=== PATIENT | female | born 1940 | race Caucasian/White ===

== ENCOUNTER → 2017-07-06 | Outpatient (CLI) | payer MEDICARE ==
[~2017-07-06] MED LIST: ALPR.25T PO; AMLO10TA82 PO; ASP81TEC PO; CALC1TAB38 PO; CALC625T PO; CHOL200025 PO; DCS100C PO; DICL/MIS50 PO; EST45C VG; FEXO180T PO; HYDR-1231 PO; MIACALCIN IU; MTP25TSR PO; MULT1CAP27 PO; OLME20TA21 PO; OMEG1CAP58 PO; OMEP20CA12 PO; PRV20T PO; SIME80TA6 PO; SITA100T PO
[2017-07-06 16:22] LABS: BASOPHILS # (AUTO) 0.1 10^3/uL (0.0-0.1); BASOPHILS % (AUTO) 1 % (0-10); EOSINOPHILS # (AUTO) 0.5 10^3/uL (0.0-0.3); EOSINOPHILS % (AUTO) 5 % (0-10); LYMPHOCYTES # (AUTO) 2.6 X 10^3 (1.0-4.0); LYMPHOCYTES % (AUTO) 25 % (12-44); MEAN CORPUSCULAR HEMOGLOBIN 29 PG (25-34); MEAN CORPUSCULAR HGB CONC 33 G/DL (32-36); MEAN CORPUSCULAR VOLUME 89 FL (80-99); MEAN PLATELET VOLUME 10.2 FL (7.4-10.4); MONOCYTES # (AUTO) 1.3 X 10^3 (0.0-1.0); MONOCYTES % (AUTO) 12 % (0-12); NEUTROPHILS # (AUTO) 5.9 X 10^3 (1.8-7.8); NEUTROPHILS % (AUTO) 57 % (42-75); PLATELET COUNT 321 10^3/uL (130-400); RED BLOOD COUNT 4.18 10^6/uL (4.35-5.85); RED CELL DISTRIBUTION WIDTH 13.7 % (10.0-14.5); WHITE BLOOD COUNT 10.4 10^3/uL (4.3-11.0)
[2017-07-06 16:41] LABS: ALBUMIN 3.7 GM/DL (3.2-4.5); BILIRUBIN,TOTAL 0.3 MG/DL (0.1-1.0); CALCIUM 9.5 MG/DL (8.5-10.1); CREATININE SERUM 1.14 MG/DL (0.60-1.30); POTASSIUM 3.4 MMOL/L (3.6-5.0)
--- NOTE | 2017-07-06 18:07 | Diagnostic Imaging Report ---
PA and lateral views of the chest. INDICATION: Cough. FINDINGS: The lungs are clear of focal infiltrates. There is chronic-appearing interstitial thickening. The heart size is normal. There is no effusion or pneumothorax. The mediastinum and chasity appear unremarkable. IMPRESSION: No acute process. Dictated by: Dictated on workstation # [id number]
== END ==
LOC: RAD 15:55
PROVIDERS: ATTEND Nurse Practitioner Family
DX: R05 Cough (principal); J01.10 Acute frontal sinusitis, unspecified
CPT/HCPCS: 36415; 71020; 80053; 85025

== ENCOUNTER 2017-07-15 12:23 | Inpatient (IN) | payer MEDICARE ==
[2017-07-15] VITALS (9 sets, daily range): BP systolic 92–132; BP diastolic 43–68
[~2017-07-15] VITALS: Ht 157.5 cm; Wt 63.1 kg
[~2017-07-15 12:23] MED LIST changes: -AMLO5TAB2 PO; -CA C1TAB75 PO; -FENO135C4 PO; -FLUT9.9S NSEACH; -KRIL1CAP2 PO; -LACT1CAP39 PO; -LEVO500T80 PO; -LEVO5TAB28 PO; -MONT10TA24 PO; -NAPR500T PO; -PRD20T PO; -UBID100C44 PO
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
[2017-07-15 12:46] LABS: BASOPHILS % (AUTO) 0 % (0-10); EOSINOPHILS # (AUTO) 0.4 10^3/uL (0.0-0.3); EOSINOPHILS % (AUTO) 4 % (0-10); LYMPHOCYTES # (AUTO) 0.9 X 10^3 (1.0-4.0); LYMPHOCYTES % (AUTO) 9 % (12-44); MEAN CORPUSCULAR HEMOGLOBIN 29 PG (25-34); MEAN CORPUSCULAR HGB CONC 33 G/DL (32-36); MEAN CORPUSCULAR VOLUME 88 FL (80-99); MEAN PLATELET VOLUME 9.7 FL (7.4-10.4); MONOCYTES # (AUTO) 1.4 X 10^3 (0.0-1.0); MONOCYTES % (AUTO) 13 % (0-12); NEUTROPHILS # (AUTO) 7.7 X 10^3 (1.8-7.8); NEUTROPHILS % (AUTO) 74 % (42-75); PLATELET COUNT 407 10^3/uL (130-400); RED BLOOD COUNT 4.14 10^6/uL (4.35-5.85); RED CELL DISTRIBUTION WIDTH 13.7 % (10.0-14.5); WHITE BLOOD COUNT 10.4 10^3/uL (4.3-11.0)
[2017-07-15 13:03] LABS: ALBUMIN 3.6 GM/DL (3.2-4.5); BILIRUBIN,TOTAL 0.4 MG/DL (0.1-1.0); CALCIUM 9.5 MG/DL (8.5-10.1); CREATININE SERUM 1.1 MG/DL (0.60-1.30); POTASSIUM 4.3 MMOL/L (3.6-5.0); TOTAL PROTEIN 7.3 GM/DL (6.4-8.2)
--- NOTE | 2017-07-15 13:14 | ED Respiratory ---
General Chief Complaint: Respiratory Problems Stated Complaint: SOB,FEVER Nursing Triage Note: SOA SINCE APRIL, WORSE THIS AM. FEVER OFF AND ON FOR SEVERAL DAYS. Source: patient Exam Limitations: no limitations History of Present Illness Time seen by provider: 13:12 Initial Comments To ER with progressive dyspnea on exertion. This is been ongoing since about April of this year. During that time she was started on Cipro and Flagyl for diverticulitis. She then developed hives all over and was on a course of steroids. Since then she's had a progressive cough and shortness of breath. The cough is nonproductive. She's had a fever up to 100.5 for the past 3-4 days. No history of this. Upon arrival to ER oxygen saturations 83 percent on room air. Timing/Duration: constant Severity: moderate Associated Symptoms: cough, fever/chills, shortness of breath, wheezing Allergies and Home Medications Allergies Coded Allergies: Sulfa (Sulfonamide Antibiotics) (Verified Allergy, Mild, 11/12/11) Home Medications Alprazolam 0.25 Mg Tablet, 0.25 MG PO BID PRN, (Reported) Amlodipine Besylate 10 Mg Tablet, 10 MG PO DAILY, (Reported) Aspirin 81 Mg Tabec, 81 MG PO DAILY, (Reported) Benicar Hct 20 Mg Tablet, 20 MG PO DAILY, (Reported) Calcium Citrate/Vitamin D3 1 Each Tablet, 1 TAB PO DAILY, (Reported) Calcium Polycarbophil 625 Mg Tablet, 2 TAB PO DAILY, (Reported) Cholecalciferol (Vitamin D3) 2,000 Unit Tablet, 2,000 UNIT PO DAILY, (Reported) Docusate Sodium 100 Mg Capsule, 200 MG PO DAILY, (Reported) Estrogens Conjugated 45 Gm Cr, 0.5 GM VG hs - 2x/week, (Reported) 1 APPLICATORFUL Fexofenadine Hcl 180 Mg Tablet, 180 MG PO DAILY, (Reported) Hydrocodone Bit/Acetaminophen 1 Tab Tablet, 1 TAB PO Q6H PRN for PAIN, #20 Prescribed by: CONSTANTINE CAMPBELL on 04/02/152138 Metoprolol Succinate 25 Mg Tab.sr.24h, 25 MG PO DAILY, (Reported) Multivitamins 1 Each Capsule, 1 EACH PO DAILY, (Reported) [place]-3 Fatty Acids/Fish Oil 1 Each Capsule, 1,000 MG PO TID, (Reported) Omeprazole 20 Mg Capsule.dr, 20 MG PO DAILY, #30 (Reported) Pravastatin Sodium 20 Mg Tablet, 20 MG PO DAILY, #30 (Reported) Simethicone 80 Mg Tab.chew, 80 MG PO PRN, (Reported) Sitagliptin Phosphate 100 Mg Tablet, 100 MG PO DAILY, (Reported) Constitutional: see HPI, chills, fever, malaise, weakness EENTM: see HPI Respiratory: see HPI, cough, dyspnea on exertion, short of breath Cardiovascular: no symptoms reported, No chest pain, No edema, No Hx of Intervention, No palpitations, No syncope, No vascular heart diseas Genitourinary: no symptoms reported Musculoskeletal: see HPI, other (BLE leg cramping intermittently) Skin: no symptoms reported Psychiatric/Neurological: No Symptoms Reported Hematologic/Lymphatic: No Symptoms Reported Past Txplzfp-Fmuiim-Ofubxa Hx Patient Social History Alcohol Use: Denies Use Recreational Drug Use: No Smoking Status: Never a Smoker Recent Foreign Travel: No Contact w/Someone Who Travel: No Recent Infectious Disease Expo: No Immunizations Up To Date Tetanus Booster (TDap): Unknown Surgeries HX Surgeries: Yes Surgeries: Hysterectomy Respiratory Hx Respiratory Disorders: No Cardiovascular Hx Cardiac Disorders: Yes Cardiac Disorders: High Cholesterol, Hypertension Neurological Hx Neurological Disorders: No Reproductive System Hx Reproductive Disorders: No Genitourinary Hx Genitourinary Disorders: No Gastrointestinal Hx Gastrointestinal Disorders: Yes Gastrointestinal Disorders: Gastroesophageal Reflux, Diverticulosis Musculoskeletal Hx Musculoskeletal Disorders: Yes Musculoskeletal Disorders: Fractures Endocrine Hx Endocrine Disorders: No HEENT HX ENT Disorders: No Cancer Hx Cancer: No Psychosocial Hx Psychiatric Problems: No Integumentary HX Skin/Integumentary Disorder: No Blood Transfusions Hx Blood Disorders: No Physical Exam Vital Signs Vital Sign - Last 12Hours 07/15/17 12:47 Temp 100.5 Pulse 86 Resp 22 B/P (MAP) 148/66 Pulse Ox 96 O2 Delivery Nasal Cannula O2 Flow Rate 2.00 Capillary Refill : Less Than 3 Seconds General Appearance: WD/WN, no apparent distress Eyes: Bilateral Eye Normal Inspection, Bilateral Eye PERRL, Bilateral Eye EOMI HEENT: PERRL/EOMI, normal ENT inspection Neck: non-tender, full range of motion Respiratory: no respiratory distress, no accessory muscle use, rales ( bilateral bases L>R) Cardiovascular: regular rate, rhythm, no murmur Gastrointestinal: normal bowel sounds, non tender, soft Extremities: normal range of motion, normal inspection, No normal capillary refill Neurologic/Psychiatric: alert, normal mood/affect, oriented x 3 Skin: normal color, warm/dry Focused Exam Evaluation Lactate Level Laboratory Tests 07/15/17 13:16: Lactic Acid Level 1.05 Lactic Acid Level Laboratory Tests Test 07/15/17 13:16 Lactic Acid Level 1.05 MMOL/L (0.50-2.00) Progress/Results/Core Measures Results/Orders Lab Results Laboratory Tests Test 07/15/17 12:30 07/15/17 13:16 Range/Units White Blood Count 10.4 4.3-11.0 10^3/uL Red Blood Count 4.14 L 4.35-5.85 10^6/uL Hemoglobin 12.0 11.5-16.0 G/DL Hematocrit 37 35-52 % Mean Corpuscular Volume 88 80-99 FL Mean Corpuscular Hemoglobin 29 25-34 PG Mean Corpuscular Hemoglobin Concent 33 32-36 G/DL Red Cell Distribution Width 13.7 10.0-14.5 % Platelet Count 407 H 130-400 10^3/uL Mean Platelet Volume 9.7 7.4-10.4 FL Neutrophils (%) (Auto) 74 42-75 % Lymphocytes (%) (Auto) 9 L 12-44 % Monocytes (%) (Auto) 13 H 0-12 % Eosinophils (%) (Auto) 4 0-10 % Basophils (%) (Auto) 0 0-10 % Neutrophils # (Auto) 7.7 1.8-7.8 X 10^3 Lymphocytes # (Auto) 0.9 L 1.0-4.0 X 10^3 Monocytes # (Auto) 1.4 H 0.0-1.0 X 10^3 Eosinophils # (Auto) 0.4 H 0.0-0.3 10^3/uL Basophils # (Auto) 0.0 0.0-0.1 10^3/uL Sodium Level 137 135-145 MMOL/L Potassium Level 4.3 3.6-5.0 MMOL/L Chloride Level 103 98-107 MMOL/L Carbon Dioxide Level 25 21-32 MMOL/L Anion Gap 9 5-14 MMOL/L Blood Urea Nitrogen 22 H 7-18 MG/DL Creatinine 1.10 0.60-1.30 MG/DL Estimat Glomerular Filtration Rate 49 BUN/Creatinine Ratio 20 Glucose Level 118 H 70-105 MG/DL Calcium Level 9.5 8.5-10.1 MG/DL Total Bilirubin 0.4 0.1-1.0 MG/DL Aspartate Amino Transf (AST/SGOT) 26 5-34 U/L Alanine Aminotransferase (ALT/SGPT) 14 0-55 U/L Alkaline Phosphatase 46 40-136 U/L Troponin I < 0.30 <0.30 NG/ML B-Type Natriuretic Peptide 19.5 <100.0 PG/ML Total Protein 7.3 6.4-8.2 GM/DL Albumin 3.6 3.2-4.5 GM/DL Lactic Acid Level 1.05 0.50-2.00 MMOL/L My Orders Orders - HIREN ZHENG [employer] MGR Cbc With Automated Diff (07/15/17 12:27) Comprehensive Metabolic Panel (07/15/17 12:27) Chest Pa/Lat (2 View) (07/15/17 12:27) Blood Culture (07/15/17 12:27) Saline Lock/Iv-Start (07/15/17 12:27) Lactic Acid Analyzer (07/15/17 12:27) Troponin I (07/15/17 12:53) Ekg Tracing (07/15/17 12:53) BNP (07/15/17 12:53) Albuterol/Ipra Inhalation Soln (Duoneb I (07/15/17 13:30) Svn Sm Volume Nebulizer Rt-Rfs (07/15/17 13:18) Ct Angio Chest W (07/15/17 13:50) Iohexol Injection (Omnipaque 350 Mg/Ml 1 (07/15/17 14:00) Ns (Ivpb) (Sodium Chloride 0.9% Ivpb Bag (07/15/17 14:00) Iohexol Injection (Omnipaque 350 Mg/Ml 1 (07/15/17 14:15) Ns (Ivpb) (Sodium Chloride 0.9% Ivpb Bag (07/15/17 14:15) Us Venous Lower Ext [place]ak (07/15/17 14:46) Apixaban Tablet (Eliquis Tablet) (07/15/17 15:00) Medications Given in ED Current Medications Medications Dose Ordered Sig/Chaim Route Start Time Stop Time Status Last Admin Dose Admin Albuterol/ Ipratropium 3 ml ONCE ONCE INH 07/15/17 13:30 07/15/17 13:31 DC 07/15/17 13:37 3 ML Apixaban 10 mg ONCE ONCE PO 07/15/17 15:00 07/15/17 15:01 DC 07/15/17 16:03 10 MG Iohexol 100 ml ONCE ONCE IV 07/15/17 14:15 07/15/17 14:16 DC 07/15/17 14:11 100 ML Sodium Chloride 100 ml ONCE ONCE IV 07/15/17 14:15 07/15/17 14:16 DC 07/15/17 14:11 80 ML Vital Signs/I&O Vital Sign - Last 12Hours 07/15/17 07/15/17 12:47 13:40 Temp 100.5 Pulse 86 Resp 22 B/P (MAP) 148/66 Pulse Ox 96 O2 Delivery Nasal Cannula Nasal Cannula O2 Flow Rate 2.00 2.50 Blood Pressure Mean: 93 Diagnostic Imaging Diagonstic Imaging: Xray Plain Films/CT/US/NM/MRI: chest Comments NAME: LIZETTE GONZALEZ [employer] REC#: [id number] PT STATUS: REG ER : 1940 PHYSICIAN: HIREN ZHENG APRN ADMIT DATE: 07/15/17/ER Draft Date of Exam:07/15/17 CHEST PA/LAT (2 VIEW) INDICATION: Cough. COMPARISON: 07/06/2017. FINDINGS: Two views of the chest are obtained. Heart size is normal. The pulmonary vessels appear unremarkable. There is no pneumothorax or pleural fluid demonstrated. There are patchy alveolar infiltrates in the mid and lower lungs bilaterally, increased from the prior study. The osseous structures appear unremarkable. IMPRESSION: Patchy bilateral alveolar infiltrates. Short-term followup study is recommended to document resolution. Dictated on workstation # [id number] Dict: 07/15/17 1336 Trans: 07/15/17 1342 [facility] [id number] Interpreted by: SLIM JEFFRIES DO Electronically signed by: NAME: LIZETTE GONZALEZ [employer] REC#: [id number] PT STATUS: REG ER : 1940 PHYSICIAN: HIREN ZHENG APRN ADMIT DATE: 07/15/17/ER Draft Date of Exam:07/15/17 CT ANGIO CHEST W PROCEDURE: CT angiography of the chest with contrast. TECHNIQUE: Multiple contiguous axial images were obtained through the chest after uneventful bolus administration of intravenous contrast. Reconstructed CTA MIP acquisitions were also performed. INDICATION: Cough and dyspnea. There are large bilateral pulmonary emboli including a saddle embolus extending across the bifurcation into the left upper lobe pulmonary arterial branches. Smaller emboli are also present within left lower lobe arterial branches with small/ moderate emboli within right upper and lower lobe pulmonary artery branches. In addition, there is diffuse groundglass opacity throughout the lungs with background of centrilobular emphysema. No focal consolidation or evidence of pulmonary infarct is identified. There is no significant pleural or pericardial fluid. Thoracic aorta demonstrates no evidence of acute abnormality. There is mild atherosclerotic calcification. There is asymmetric prominence of the right internal jugular vein. IMPRESSION: Subtle emboli involving the pulmonary arteries bilaterally. In addition there is diffuse emphysema with associated edema and/or pneumonitis. Dictated on workstation # [id number] Dict: 07/15/17 1424 Trans: 07/15/17 1431 [id number] Interpreted by: CONCEPCION SERRANO MD Electronically signed by: NAME: LIZETTE GONAZLEZ [facility] REC#: [id number] PT STATUS: ADM IN : 1940 PHYSICIAN: HIREN ZHENG APRN ADMIT DATE: 07/15/17/ICU Draft Date of Exam:07/15/17 US VENOUS LOWER EXT [place] EXAM: Bilateral lower extremity venous Doppler. INDICATION: Bilateral pulmonary emboli. Spectral color flow imaging of the deep venous system of each lower extremity was performed. There does appear to be an extensive thrombus involving the left lower extremity. There is thrombus imaged in the common femoral, superficial femoral, popliteal and peroneal veins. There is generally good blood flow and compressibility throughout the deep venous system of the right lower extremity. IMPRESSION: 1. There is an extensive deep venous thrombosis of the left lower extremity. 2. There is no sign of a deep venous thrombosis of the right lower extremity. 3. These results were discussed with Dr. Whalen at the time of dictation. CRITICAL FINDING Dictated on workstation # [id number] Dict: 07/15/17 1530 Trans: 07/15/17 1548 [facility] [phone] Interpreted by: SUSIE JOHNSON MD Electronically signed by: Departure Communication Time/Spoke to Admitting Phy: 14:[address] Pompa. We'll admit patient to ICU, consult cardiology. Time/Spoke to Consulting Physi: 15:00 Communication/Consulting Discussed with Dr. Saucedo. He would like the patient to have Kiran per protocol. He would like to have Dr. Whitten from pulmonology on board. I called Dr. Whitten but he is in [place] for the next week. Dr. Zuñiga is okay with keeping the patient here from his standpoint if Dr. Pompa is okay with managing the respiratory complications. Since the patient was 81 percent on room air, we did apply 2 L of oxygen per nasal cannula and she is up to 96 percent on the 2 L. There is no respiratory distress and her heart rate is 102 sinus with PAC, blood pressure is adequate in the 130s systolic range. She is okay with keeping this here. I discussed the case with Dr. Bhatti who confirms this is not a saddle pulmonary embolus. Progress Notes 1356- she does feel better after a DuoNeb treatment. Oxygen saturation is 96 percent on 2 L. 1447-in discussing the primary emboli with the patient her family reported that she did take a car trip to [place] about 4-6 weeks ago. Since then she's felt ill so she's been laying around and not moving much. She has no known history of DVTs or cancer. She reports for the past few days she's had bilateral leg cramps. The ultrasound shows extensive clot in the deep veins of the left leg which is surprising given the absence of the typical findings of clot. She has no lower extremity swelling or erythema. Impression Impression: Primary Impression: Bilateral pulmonary embolism Disposition: 09 ADMITTED INPATIENT Condition: Stable Admissions Decision to Admit Reason: Admit from ER (General) Decision to Admit/Date: Jul 15, 2017 Time/Decision to Admit Time: 13:57 Departure-Patient Inst. Referrals: SAYDA ELI DO (PCP/Family) Primary Care Physician Copy Copies To 1: SAYDA ELI PETER J [employer] MGR Jul 15, 2017 13:14
[2017-07-15] MEDS ORDERED: RT-ALBUTEROL/IPRATROPIUM 3 ML (DUONEB) VIAL INH ONE (13:30)
--- NOTE | 2017-07-15 13:43 | Diagnostic Imaging Report ---
INDICATION: Cough. COMPARISON: 07/06/2017. FINDINGS: Two views of the chest are obtained. Heart size is normal. The pulmonary vessels appear unremarkable. There is no pneumothorax or pleural fluid demonstrated. There are patchy alveolar infiltrates in the mid and lower lungs bilaterally, increased from the prior study. The osseous structures appear unremarkable. IMPRESSION: Patchy bilateral alveolar infiltrates. Short-term followup study is recommended to document resolution. Dictated by: Dictated on workstation # [id number]
[2017-07-15] MEDS ORDERED: IOHEXOL 350 MG/ML 150 ML (OMNIPAQUE 350) VIAL IV ONE (14:00)
[2017-07-15] MEDS ORDERED: NS 100 ML (IVPB) BAG IV ONE ×2 (14:00→14:15)
[2017-07-15] MEDS ORDERED: IOHEXOL 350 MG/ML 100 ML (OMNIPAQUE 350) VIAL IV ONE (14:15)
--- NOTE | 2017-07-15 14:32 | Diagnostic Imaging Report ---
PROCEDURE: CT angiography of the chest with contrast. TECHNIQUE: Multiple contiguous axial images were obtained through the chest after uneventful bolus administration of intravenous contrast. Reconstructed CTA MIP acquisitions were also performed. INDICATION: Cough and dyspnea. There are large bilateral pulmonary emboli including a saddle embolus extending across the bifurcation into the left upper lobe pulmonary arterial branches. Smaller emboli are also present within left lower lobe arterial branches with small/ moderate emboli within right upper and lower lobe pulmonary artery branches. In addition, there is diffuse groundglass opacity throughout the lungs with background of centrilobular emphysema. No focal consolidation or evidence of pulmonary infarct is identified. There is no significant pleural or pericardial fluid. Thoracic aorta demonstrates no evidence of acute abnormality. There is mild atherosclerotic calcification. There is asymmetric prominence of the right internal jugular vein. IMPRESSION: Subtle emboli involving the pulmonary arteries bilaterally. In addition there is diffuse emphysema with associated edema and/or pneumonitis. Dictated by: Dictated on workstation # [id number]
[2017-07-15] MEDS ORDERED: APIXABAN 5 MG (ELIQUIS) TABLET PO ONE (15:00)
--- NOTE | 2017-07-15 15:48 | Diagnostic Imaging Report ---
EXAM: Bilateral lower extremity venous Doppler. INDICATION: Bilateral pulmonary emboli. Spectral color flow imaging of the deep venous system of each lower extremity was performed. There does appear to be an extensive thrombus involving the left lower extremity. There is thrombus imaged in the common femoral, superficial femoral, popliteal and peroneal veins. There is generally good blood flow and compressibility throughout the deep venous system of the right lower extremity. IMPRESSION: 1. There is an extensive deep venous thrombosis of the left lower extremity. 2. There is no sign of a deep venous thrombosis of the right lower extremity. 3. These results were discussed with Dr. Whalen at the time of dictation. CRITICAL FINDING Dictated by: Dictated on workstation # [id number]
[2017-07-15] MEDS: NS IV 1000 ML 1,000 ML IV SCH (17:22)
--- NOTE | 2017-07-15 17:25 | Consultation-Cardiology ---
HPI-Cardiology Cardiology Consultation: Date of Consultation 07/15/17 Time Seen by Provider: 17:10 Date of Admission Attending Physician Mary Pompa DO Admitting Physician Slava San DO Consulting Physician TABBY LOO MD, MA, FACP, FACC, FSCAI, CCDS HPI: Chief Complaint: Shortness of breath, cough 76 yo woman with several weeks of cough and several days of shortness of breath ; both these symptoms much worse in the last 2 days. Came to ER today. Diagnosed with bilat PE and admitted to Dr Pompa's service. She does not report cp, but has a feeling of some wgt on the chest, continuous, mild, for several days, without aggravating or relieving factors. Denies palp or syncope or ankle swelling Has had intermittent fever and chills for the last 2-3 days Review of Systems-Cardiology Review of Systems Constitutional: chills, fever, malaise, tiredness Eyes: No vision change Ears/Nose/Throat: No ear discharge, No nasal drainage, No recent hearing loss Respiratory: As described under HPI Cardiovascular: As described under HPI Gastrointestinal: No constipation, No diarrhea, nausea, No stool coloration changes Genitourinary: No dysuria, No hematuria, No urine frequency changes Musculoskeletal: back pain (chronic) Skin: No rash, No ulcerations Psychiatric/Neurological: No focal weakness, No syncope Hematologic: No bleeding abnormalities IXP-Jyyxlj-Qoaluy Hx Patient Social History Alcohol Use: Denies Use Recreational Drug Use: No Smoking Status: Never a Smoker Recent Foreign Travel: No Recent Infectious Disease Expo: No Immunizations Up To Date Tetanus Booster (TDap): Unknown Past Medical History PMH As described under Assessment. Family Medical History Family Medical History: Mother had CVA at age 79 Sister had a pacemaker at age 78 Allergies and Home Medications Allergies Coded Allergies: Sulfa (Sulfonamide Antibiotics) (Verified Allergy, Mild, 11/12/11) Home Medications Alprazolam 0.25 Mg Tablet, 0.25 MG PO BID PRN, (Reported) Amlodipine Besylate 10 Mg Tablet, 10 MG PO DAILY, (Reported) Aspirin 81 Mg Tabec, 81 MG PO DAILY, (Reported) Benicar Hct 20 Mg Tablet, 20 MG PO DAILY, (Reported) Calcium Citrate/Vitamin D3 1 Each Tablet, 1 TAB PO DAILY, (Reported) Calcium Polycarbophil 625 Mg Tablet, 2 TAB PO DAILY, (Reported) Cholecalciferol (Vitamin D3) 2,000 Unit Tablet, 2,000 UNIT PO DAILY, (Reported) Docusate Sodium 100 Mg Capsule, 200 MG PO DAILY, (Reported) Estrogens Conjugated 45 Gm Cr, 0.5 GM VG hs - 2x/week, (Reported) 1 APPLICATORFUL Fexofenadine Hcl 180 Mg Tablet, 180 MG PO DAILY, (Reported) Hydrocodone Bit/Acetaminophen 1 Tab Tablet, 1 TAB PO Q6H PRN for PAIN, #20 Prescribed by: CONSTANTINE CAMPBELL on 04/02/152138 Metoprolol Succinate 25 Mg Tab.sr.24h, 25 MG PO DAILY, (Reported) Multivitamins 1 Each Capsule, 1 EACH PO DAILY, (Reported) [place]-3 Fatty Acids/Fish Oil 1 Each Capsule, 1,000 MG PO TID, (Reported) Omeprazole 20 Mg Capsule.dr, 20 MG PO DAILY, #30 (Reported) Pravastatin Sodium 20 Mg Tablet, 20 MG PO DAILY, #30 (Reported) Simethicone 80 Mg Tab.chew, 80 MG PO PRN, (Reported) Sitagliptin Phosphate 100 Mg Tablet, 100 MG PO DAILY, (Reported) Physical Exam-Cardiology Physical Exam Vital Signs/I&O Vital Sign - Last 12Hours 07/15/17 07/15/17 07/15/17 07/15/17 12:47 13:40 16:15 16:20 Temp 100.5 98.6 98.6 Pulse 86 86 92 Resp 22 18 23 B/P (MAP) 148/66 127/65 Pulse Ox 96 96 96 O2 Delivery Nasal Cannula Nasal Cannula Nasal Cannula Nasal Cannula O2 Flow Rate 2.00 2.50 2.00 2.00 07/15/17 07/15/17 16:27 17:09 Pulse 90 90 Pulse Ox 96 FiO2 28 Capillary Refill : Less Than 3 Seconds Constitutional: AAO x 3, well-developed, well-nourished HEENT: hearing is well preserved, No xanthelasmas are seen Neck: carotid pulses are 2 + bilaterally, with good upstrokes Respiratory: No accessory muscle use, other (fair to good bilat air entry; basal coarse crackles) Cardiovascular: regular rate-rhythm, S1 and S2, systolic murmur (faint PETTY at card base) Gastrointestinal: No tender, soft, guarding, No rebound, audible bowel sounds Extremities: No clubbing, No cyanosis, No significant edema Data Review Labs Laboratory Tests 07/15/17 12:30: White Blood Count 10.4, Red Blood Count 4.14L, Hemoglobin 12.0, Hematocrit 37, Mean Corpuscular Volume 88, Mean Corpuscular Hemoglobin 29, Mean Corpuscular Hemoglobin Concent 33, Red Cell Distribution Width 13.7, Platelet Count 407H, Mean Platelet Volume 9.7, Neutrophils (%) (Auto) 74, Lymphocytes (%) (Auto) 9L, Monocytes (%) (Auto) 13H, Eosinophils (%) (Auto) 4, Basophils (%) (Auto) 0, Neutrophils # (Auto) 7.7, Lymphocytes # (Auto) 0.9L, Monocytes # (Auto) 1.4H, Eosinophils # (Auto) 0.4H, Basophils # (Auto) 0.0, Sodium Level 137, Potassium Level 4.3, Chloride Level 103, Carbon Dioxide Level 25, Anion Gap 9, Blood Urea Nitrogen 22H, Creatinine 1.10, Estimat Glomerular Filtration Rate 49, BUN/ Creatinine Ratio 20, Glucose Level 118H, Calcium Level 9.5, Total Bilirubin 0.4 , Aspartate Amino Transf (AST/SGOT) 26, Alanine Aminotransferase (ALT/SGPT) 14, Alkaline Phosphatase 46, Troponin I < 0.30, B-Type Natriuretic Peptide 19.5, Total Protein 7.3, Albumin 3.6 07/15/17 13:16: Lactic Acid Level 1.05 Laboratory Tests 07/15/17 12:30 ECG Impression ECG Comment ECG on 07/15/17: NSR, occ PAC, no ECG evidence of ac ischemia or infarction A/P-Cardiology Assessment/Admission Diagnosis Large PE with acute resp failure (as indicated by a presenting oxygen sat of 81% ) L-sided DVT seen on leg venous Doppler of 07/15/17 No evidence of ACS Hypertension, by history Hyperlipidemia, by history No significant CAD and normal LVEF on card cath of Oct 2011 Discussion and Recomendations * Dr Pompa managing PE * PE-treatment dose of apixaban * Consider transfer to tertiary care facility if deterioration of hemodynamics of further deterioration of resp status * Monitor labs * Echo * I spoke with her and her family and answered CV-related questions TABBY LOO MD FACP FAC CCDS Jul 15, 2017 17:25
[2017-07-15] MEDS ORDERED: RT-ALBUTEROL SULF 2.5 MG/3 ML PRE-MIX VIAL IH PRN (17:30)
[2017-07-15] MEDS: RT-ALBUTEROL SULF 2.5 MG/3 ML PRE-MIX VIAL IH SCH ×2 (18:41→21:39)
[2017-07-15] MEDS: APIXABAN 5 MG (ELIQUIS) TABLET PO SCH (21:15)
[2017-07-16] VITALS (25 sets, daily range): BP systolic 89–138; BP diastolic 31–74
[2017-07-16] MEDS: RT-ALBUTEROL SULF 2.5 MG/3 ML PRE-MIX VIAL IH SCH ×6 (02:00→22:13)
[2017-07-16 04:12] LABS: BASOPHILS % (AUTO) 0 % (0-10); EOSINOPHILS % (AUTO) 0 % (0-10); LYMPHOCYTES # (AUTO) 0.9 X 10^3 (1.0-4.0); LYMPHOCYTES % (AUTO) 12 % (12-44); MEAN CORPUSCULAR HEMOGLOBIN 28 PG (25-34); MEAN CORPUSCULAR HGB CONC 32 G/DL (32-36); MEAN CORPUSCULAR VOLUME 88 FL (80-99); MEAN PLATELET VOLUME 9.7 FL (7.4-10.4); MONOCYTES # (AUTO) 1.2 X 10^3 (0.0-1.0); MONOCYTES % (AUTO) 17 % (0-12); NEUTROPHILS # (AUTO) 5.1 X 10^3 (1.8-7.8); NEUTROPHILS % (AUTO) 71 % (42-75); PLATELET COUNT 388 10^3/uL (130-400); RED BLOOD COUNT 3.63 10^6/uL (4.35-5.85); RED CELL DISTRIBUTION WIDTH 13.7 % (10.0-14.5); WHITE BLOOD COUNT 7.2 10^3/uL (4.3-11.0)
[2017-07-16 04:36] LABS: ANION GAP 12 MMOL/L (5-14); BLOOD UREA NITROGEN 19 MG/DL (7-18); BUN/CREATININE RATIO 23; CALCIUM 8.8 MG/DL (8.5-10.1); CARBON DIOXIDE 20 MMOL/L (21-32); CHLORIDE 108 MMOL/L (98-107); CREATININE SERUM 0.84 MG/DL (0.60-1.30); GFR ESTIMATED > 60; GLUCOSE 120 MG/DL (70-105); MAGNESIUM 1.8 MG/DL (1.8-2.4); PHOSPHORUS 3.2 MG/DL (2.3-4.7); POTASSIUM 3.9 MMOL/L (3.6-5.0); SODIUM 140 MMOL/L (135-145)
[2017-07-16] MEDS: NS IV 1000 ML 1,000 ML IV SCH ×3 (06:18→22:55)
--- NOTE | 2017-07-16 07:50 | Diagnostic Imaging Report ---
INDICATION: Cough. TECHNIQUE: Single view chest 5:42 AM. CORRELATION STUDY: 07/15/2017 FINDINGS: Heart size enlarged. Vasculature is mildly prominent, but generally stable. Prominent interstitial markings and patchy infiltrate throughout both lung balderrama. No polly lobar infiltrate. IMPRESSION: 1. Vasculature remains prominent. Scattered areas of infiltrate-like densities throughout both lung balderrama generally stable. Dictated by: Dictated on workstation # [id number]
--- NOTE | 2017-07-16 08:46 | History & Physical-Hospitalist ---
HPI History of Present Illness: HPI/Chief Complaint CC: Dyspnea with bilateral PE's w/left leg DVT HPI: This is a 76-year-old white female of Dr. San's with a recent history of acute diverticulitis recurrent type weeks ago which completed Cipro and Flagyl regimen but one week later had hives then 4 weeks after that began having a cough that started out as a nuisance but then became more frequent and short of breath so she presented to the emergency room yesterday found to have O2 sat of [address] scan of the chest angiogram revealed bilateral pulmonary emboli non-saddle. Venous Doppler ultrasound showed extensive clot of the left lower leg so she was placed in ICU placed on oxygen and placed on Eliquis for anticoagulation therapy. Cardiology is evaluating her along with hematology to evaluate the source of the hypercoagulable state. She is up-to- date on her mammogram from last year and her colonoscopy was last done less than [address] Taylor actually completed her last colonoscopy. She takes a very low dose hormone but her sister has had a blood clot in the past. She has never had any blood clot problem in the past. She has not had any recent travel but she reports since the cough began she has started laying around more at the house and not being active. Source: patient, RN/MD Exam Limitations: no limitations Date Seen 07/16/17 Time Seen by Provider: 07:30 Attending Physician Mary Wagoner DO PCP Slava San DO Referring Physician Date of Admission Jul 15, 2017 at 15:08 Home Medications & Allergies Home Medications Reviewed patient Home Medication Reconciliation Form Allergies Allergies Coded Allergies Sulfa (Sulfonamide Antibiotics) (Verified Allergy, Mild, 11/12/11) Past Ikuyrvn-Nzwmys-Ijeuba Hx Patient Social History Marrital Status: Employed/Student: retired Alcohol Use: Denies Use Recreational Drug Use: No Smoking Status: Never a Smoker Physical Abuse Screen: No Sexual Abuse: No Recent Foreign Travel: No Contact w/other who traveled: No Recent Hopitalizations: No Recent Infectious Disease Expo: No Immunizations Up To Date Tetanus Booster (TDap): Unknown Date of Pneumonia Vaccine: Jul 15, 2012 Seasonal Allergies Seasonal Allergies: Yes Surgeries HX Surgeries: Yes Surgeries: Hysterectomy Respiratory Hx Respiratory Disorders: No Cardiovascular Hx Cardiovascular Disorders: Yes Cardiac Disorders: High Cholesterol, Hypertension Neurological Hx Neurological Disorders: No Reproductive System Hx Reproductive Disorders: No Sexually Transmitted Disease: No HIV/AIDS: No Female Reproductive Disorders: Denies Genitourinary Hx Genitourinary Disorders: No Gastrointestinal Hx Gastrointestinal Disorders: Yes Gastrointestinal Disorders: Gastroesophageal Reflux, Diverticulosis Musculoskeletal Hx Musculoskeletal Disorders: Yes Musculoskeletal Disorders: Fractures Endocrine Hx Endocrine Disorders: No HEENT HX ENT Disorders: No HEENT Disorders: Cataract Loss of Vision: Denies Hearing Impairment: Denies Cancer Hx Cancer: No Psychosocial Hx Psychiatric Problems: No Integumentary HX Skin/Integumentary Disorder: No Skin/Integumentary Disorders: Eczema Blood Transfusions Hx Blood Disorders: No Adverse Reaction to a Blood Tr: No Family Medical History Other Significan Family Hx: Sister with DVT Review of Systems Constitutional: see HPI, dizziness, weakness EENTM: no symptoms reported Respiratory: cough Cardiovascular: chest pain Gastrointestinal: no symptoms reported Genitourinary: no symptoms reported Musculoskeletal: no symptoms reported Skin: no symptoms reported Psychiatric/Neurological: No Symptoms Reported All Other Systems Reviewed Negative Unless Noted: Yes Physical Exam Physical Exam Vital Signs Vital Sign - Last 12Hours 07/15/17 07/15/17 07/15/17 00:00 12:47 17:09 Temp 100.5 Pulse 86 Resp 22 B/P (MAP) 148/66 Pulse Ox 96 O2 Delivery Nasal Cannula O2 Flow Rate 2.00 FiO2 28 Capillary Refill : Less Than 3 Seconds General Appearance: No Apparent Distress, WD/WN, Chronically ill, Thin, Other ( frightened, family at bedside, frail) Eyes: Bilateral Eye Normal Inspection, Bilateral Eye PERRL HEENT: PERRL/EOMI, Normal ENT Inspection, Pharynx Normal Neck: Full Range of Motion, Normal Inspection, Non Tender, Supple, Carotid Bruit Respiratory: Chest Non Tender, No Accessory Muscle Use, No Respiratory Distress , Crackles (in bilateral bases) Cardiovascular: Regular Rate, Rhythm, No Edema, No Gallop, No JVD, No Murmur, Normal Peripheral Pulses Gastrointestinal: Normal Bowel Sounds, No Organomegaly, No Pulsatile Mass, Non Tender, Soft Back: Normal Inspection, No CVA Tenderness, No Vertebral Tenderness Extremity: Normal Capillary Refill, Normal Inspection, Normal Range of Motion, Non Tender, No Calf Tenderness, No Pedal Edema Neurologic/Psychiatric: Alert, Oriented x3, No Motor/Sensory Deficits, Normal Mood/Affect Skin: Normal Color, Warm/Dry Lymphatic: No Adenopathy Results Results/Procedures Lab Laboratory Tests 07/15/17 12:30 07/16/17 03:52 Assessment/Plan Admission Diagnosis Assessment: Bilateral pulmonary emboli with left lower extremity extensive DVT in patient without prior history of blood clots but sister has had DVT and pt is on hormones Recent episode of acute diverticulitis managed on by mouth antibiotics recurrent issue and last colonoscopy less than [address] Taylor Hormone therapy Hypertension Hypertriglyceridemia Irritable bowel syndrome Osteoporosis Assessment and Plan Plan: Maintain oxygen I appreciate cardiology and hematology consultations Kiran PALMER catheter Up in chair Stop hormones Reconcile all home meds Clinical Quality Measures DVT/VTE Risk/Contraindication: Risk Factor Score Per Nursin RFS Level Per Nursing on Admit: 2=Moderate MARY WAGONER DO Jul 16, 2017 08:46
[2017-07-16] MEDS: APIXABAN 5 MG (ELIQUIS) TABLET PO SCH ×2 (09:02→21:51)
[2017-07-16] MEDS ORDERED: KRIL1CAP2 PO (10:20)
[2017-07-16] MEDS ORDERED: UBID100C44 PO (10:20)
[2017-07-16] MEDS ORDERED: FLUT9.9S NSEACH (10:20)
[2017-07-16] MEDS ORDERED: OMEP20CA12 PO (10:20)
[2017-07-16] MEDS ORDERED: LEVO500T80 PO (10:20)
[2017-07-16] MEDS ORDERED: LEVO5TAB28 PO (10:20)
[2017-07-16] MEDS ORDERED: PRD20T PO (10:20)
[2017-07-16] MEDS ORDERED: CA C1TAB75 PO (10:20)
[2017-07-16] MEDS ORDERED: NAPR500T PO (10:20)
[2017-07-16] MEDS ORDERED: AMLO5TAB2 PO (10:20)
[2017-07-16] MEDS ORDERED: LACT1CAP39 PO (10:20)
[2017-07-16] MEDS ORDERED: MONT10TA24 PO (10:20)
[2017-07-16] MEDS ORDERED: FENO135C4 PO (10:20)
[2017-07-16] MEDS ORDERED: SIMETHICONE 80 MG (MYLICON) CHEW PO PRN (12:00)
--- NOTE | 2017-07-16 14:23 | Progress Note-Cardiology ---
Cardiology SOAP Progress Note Subjective: Sitting up in bed. Continues to feel short of breath with any exertion. No c/ o CP, palpitations, syncope or near syncope. Occ non-productive cough. Objective: I&O/Vital Signs Vital Sign - Last 12Hours 07/16/17 07/16/17 07/16/17 07/16/17 05:00 06:00 07:00 07:00 Pulse 64 63 68 64 Resp 29 32 21 B/P (MAP) 99/45 122/56 103/57 Pulse Ox 91 96 97 O2 Delivery Nasal Cannula Nasal Cannula Nasal Cannula O2 Flow Rate 2.00 2.00 2.00 07/16/17 07/16/17 07/16/17 07/16/17 08:00 08:45 09:02 09:15 Temp 98.1 Pulse 70 69 Resp 23 21 B/P (MAP) 125/62 138/72 Pulse Ox 99 99 O2 Delivery Nasal Cannula Nasal Cannula Nasal Cannula Nasal Cannula O2 Flow Rate 2.00 2.00 2.00 4.00 07/16/17 07/16/17 07/16/17 07/16/17 09:58 10:00 10:42 11:00 Pulse 75 75 Resp 18 22 B/P (MAP) 110/51 122/56 Pulse Ox 97 98 98 O2 Delivery Nasal Cannula Nasal Cannula Nasal Cannula Nasal Cannula O2 Flow Rate 3.00 3.00 2.00 3.00 07/16/17 07/16/17 07/16/17 07/16/17 12:00 12:15 13:00 13:00 Temp 97.7 Pulse 72 74 76 Resp 27 21 B/P (MAP) 114/56 113/63 Pulse Ox 100 94 O2 Delivery Nasal Cannula Nasal Cannula Nasal Cannula O2 Flow Rate 3.00 3.00 2.00 07/16/17 07/16/17 07/16/17 07/16/17 14:00 14:41 15:00 16:00 Pulse 72 75 81 Resp 38 23 32 B/P (MAP) 112/52 99/71 108/50 Pulse Ox 98 99 96 96 O2 Delivery Nasal Cannula Nasal Cannula Nasal Cannula Nasal Cannula O2 Flow Rate 2.00 2.00 2.00 2.00 07/16/17 16:05 O2 Delivery Nasal Cannula O2 Flow Rate 3.00 Intake and Output 07/17/17 00:00 Intake Total 450 ml Balance 450 ml Weight (Pounds): 134 Weight (Ounces): 3.0 Weight (Calculated Kilograms): 60.468120 Constitutional: AAO x 3, well-developed, well-nourished Respiratory: crackles (bi-basilar), other Cardiovascular: regular rate-rhythm, S1 and S2, systolic murmur Gastrointestional: soft, audible bowel sounds Extremities: No clubbing, No cyanosis, No significant edema Neurologic/Psychiatric: grossly intact Results/Procedures: Labs Laboratory Tests 07/16/17 03:52: White Blood Count 7.2, Red Blood Count 3.63L, Hemoglobin 10.3L, Hematocrit 32L, Mean Corpuscular Volume 88, Mean Corpuscular Hemoglobin 28, Mean Corpuscular Hemoglobin Concent 32, Red Cell Distribution Width 13.7, Platelet Count 388, Mean Platelet Volume 9.7, Neutrophils (%) (Auto) 71, Lymphocytes (%) (Auto) 12, Monocytes (%) (Auto) 17H, Eosinophils (%) (Auto) 0, Basophils (%) (Auto) 0, Neutrophils # (Auto) 5.1, Lymphocytes # (Auto) 0.9L, Monocytes # (Auto) 1.2H, Eosinophils # (Auto) 0.0, Basophils # (Auto) 0.0, Sodium Level 140, Potassium Level 3.9, Chloride Level 108H, Carbon Dioxide Level 20L, Anion Gap 12, Blood Urea Nitrogen 19H, Creatinine 0.84, Estimat Glomerular Filtration Rate > 60, BUN /Creatinine Ratio 23, Glucose Level 120H, Calcium Level 8.8, Phosphorus Level 3.2, Magnesium Level 1.8 Microbiology 07/15/17 Blood Culture - Preliminary, Resulted No growth Procedures NAME: LIZETTE GONZALEZ [facility] REC#: [id number] PT STATUS: ADM IN : 1940 PHYSICIAN: ALIDA WOMACK DO ADMIT DATE: 07/15/17/ICU Signed Date of Exam: 07/16/17 CHEST 1 VIEW, AP/PA ONLY INDICATION: Cough. TECHNIQUE: Single view chest 5:42 AM. CORRELATION STUDY: 07/15/2017 FINDINGS: Heart size enlarged. Vasculature is mildly prominent, but generally stable. Prominent interstitial markings and patchy infiltrate throughout both lung balderrama. No polly lobar infiltrate. IMPRESSION: 1. Vasculature remains prominent. Scattered areas of infiltrate-like densities throughout both lung balderrama generally stable. Dictated by: Dictated on workstation # [id number] Dict: 07/16/17 0744 Trans: 07/16/17 1109 Interpreted by: LEXIE SHEA DO Electronically signed by: LEXIE SHEA DO 07/16/17 1109 A/P: Assessment: Large PE with acute resp failure (as indicated by a presenting oxygen sat of 81% ) L-sided DVT seen on leg venous Doppler of 07/15/17 No evidence of ACS Hypertension, by history Hyperlipidemia, by history No significant CAD and normal LVEF on card cath of Oct 2011 Plan: * Dr Pompa managing PE * PE-treatment dose of apixaban * Consider transfer to tertiary care facility if deterioration of hemodynamics of further deterioration of resp status * Monitor labs * Echo - pending * Receiving IVF - monitor fluid balance closely * Dr. Zuñiga spoke with her and her family and answered CV-related questions Physician Assessment Physician Assessment No cp or shortness of breath at rest, at the time of this exam Lung: clear Cor: reg Ext: no c/c/e A&R * As documented in our note above that I updated (italics) and as noted below * Echo * Check TSH * Monitor labs DIMITRIOS DODD Jul 16, 2017 14:22 TABBY ZUÑIGA MD [facility] CCDS Jul 16, 2017 16:37
--- NOTE | 2017-07-16 19:48 | CONSULTATION REPORT ---
DATE OF SERVICE: 07/16/2017 The patient is admitted to ICU bed 9. REFERRING PHYSICIAN: Mary Pompa DO PRIMARY PHYSICIAN: Slava San DO IMPRESSION: 1. A 76-year-old female admitted from the emergency room with left lower extremity deep venous thrombosis and bilateral pulmonary embolism. 2. Rule out thrombophilia and will obtain factor II mutation as her last factor V mutation along with the homocysteine levels today. 3. As patient is on anticoagulation already and has an acute thromboembolism, the rest of the thrombophilia workup could not be done at this point. RECOMMENDATIONS: 1. Agree with anticoagulation as you are doing and continue this for a total of 6 months because of the extent of PE and DVT. 2. I would like [facility] 2-3 months to review the current lab work. If that is negative, I will complete the thrombophilia workup approximately 4-6 weeks after the end of the anticoagulation. 3. If patient has further PE causing hemodynamic instability, she may need to be transferred to a tertiary center for thrombolytics. BRIEF HISTORY: The patient is a 76-year-old female who started feeling sick more than a month ago and initially had diverticulitis which was treated with oral antibiotics on an outpatient basis. Following this, she developed a nonproductive cough which gradually worsened. Approximately 2 weeks ago she started developing left lower extremity discomfort which also worsened. Over the last week or so she started becoming more and more short of breath and was brought to the emergency room last night by family because of significant dyspnea on exertion. She had evaluation which showed bilateral PE and a lower extremity Doppler study showed extensive left lower extremity DVT. She was started on anticoagulation with Eliquis. A hematology consultation was obtained to rule out thrombophilia. PAST MEDICAL HISTORY: Significant for chronic history of diverticulosis with intermittent diverticulitis which is usually managed with antibiotics on an outpatient basis. She has not required surgical treatment for this. Longstanding history of hypertension which is controlled with medications. History of hypercholesterolemia. Osteoarthritis. Previous surgeries include hysterectomy for menorrhagia. For the last few years she has been using estrogen cream topically because of vaginal dryness. SOCIAL HISTORY: The patient is and lives in [facility]. They have 3 sons, all of them live close by. 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 She denied any tobacco, alcohol or other recreational drug use. She gives history of secondhand tobacco exposure until her late teens as both her parents smoked. FAMILY HISTORY: Significant for her sister who had a DVT while in her 40s or 50s. Significant family history of rheumatoid arthritis in her paternal grandfather, father, and a sister and a brother. Her grandmother had a CVA while in her 70s. No other history of thrombosis or embolism. PHYSICAL EXAMINATION: GENERAL: Today showed an elderly female, thin-appearing, awake and oriented, in mild respiratory distress. VITAL SIGNS: Temperature was 97.7, pulse rate of 74, respirations 21, blood pressure 113/63, oxygen saturation of 94% on 2 liters of oxygen by nasal cannula. HEENT: Normocephalic, extraocular muscles intact, conjunctivae pink, oral mucosa moist. NECK: Neck was supple with no JVD. No cervical, supraclavicular or axillary lymphadenopathy palpable. CHEST: Symmetrical. LUNGS: Fairly clear to auscultation with no wheezes or rales heard. CARDIOVASCULAR: Exam was regular with a few missed beats. No murmurs or gallops heard. ABDOMEN: Soft, nontender with no hepatosplenomegaly or other masses palpable. EXTREMITIES: Showed trace edema of the left lower extremity. There is tenderness along the calf and thigh muscles but no cords palpable. NEUROLOGIC: Showed no focal motor deficits. CBC done today showed WBC 7.2, hemoglobin 10.3, platelet count of 388,000 with neutrophil count of 5.1, lymphocyte count 0.9 and monocyte count of 1.2. Chemistry panel today showed relatively normal electrolytes except CO2 level of 20. BUN was 19, creatinine 0.84 with GFR more than 60 mL per minute. Glucose was 120. Liver function studies done yesterday were within normal limits. CT angiogram of the chest done yesterday in the emergency room, large bilateral pulmonary emboli including a saddle embolus extending across the bifurcation into the left upper lobe pulmonary arterial branches. Small emboli also present within the left lower lobe. A small to moderate emboli within the right upper and lower lobe pulmonary artery branches. Diffuse emphysema with edema or pneumonitis. No significant pleural or pericardial fluid. Venous Doppler studies of bilateral lower extremities showed extensive DVT in the left lower extremity. No sign of DVT on the right lower extremity. Thank you for allowing me to participate in this patient's care. I will follow the patient with you and make appropriate recommendations. Job ID: [id number] DocumentID: [id number] Dictated Date: 07/16/2017 15:14:12 Partner Cco Date: 07/16/2017 19:48:06 Dictated By: OLAF HINES MD
[2017-07-16] MEDS: MONTELUKAST 10 MG (SINGULAIR) TAB PO SCH (21:50)
[2017-07-16] MEDS ORDERED: DIAZEPAM 5 MG (VALIUM) TABLET ONE (21:59)
[2017-07-16] MEDS ORDERED: MELATONIN 3 MG TABLET PO ONE ×3 (22:01→22:15)
[2017-07-16] MEDS ORDERED: DIAZEPAM 5 MG (VALIUM) TABLET PO ONE ×3 (22:15)
[2017-07-17] VITALS (14 sets, daily range): BP systolic 106–154; BP diastolic 55–78
[2017-07-17] MEDS: RT-ALBUTEROL SULF 2.5 MG/3 ML PRE-MIX VIAL IH SCH ×6 (02:00→22:32)
[2017-07-17 04:29] LABS: BASOPHILS % (AUTO) 1 % (0-10); EOSINOPHILS # (AUTO) 0.5 10^3/uL (0.0-0.3); EOSINOPHILS % (AUTO) 8 % (0-10); LYMPHOCYTES # (AUTO) 1.1 X 10^3 (1.0-4.0); LYMPHOCYTES % (AUTO) 17 % (12-44); MEAN CORPUSCULAR HEMOGLOBIN 29 PG (25-34); MEAN CORPUSCULAR HGB CONC 32 G/DL (32-36); MEAN CORPUSCULAR VOLUME 89 FL (80-99); MONOCYTES # (AUTO) 1.1 X 10^3 (0.0-1.0); MONOCYTES % (AUTO) 16 % (0-12); NEUTROPHILS # (AUTO) 3.9 X 10^3 (1.8-7.8); NEUTROPHILS % (AUTO) 59 % (42-75); PLATELET COUNT 377 10^3/uL (130-400); WHITE BLOOD COUNT 6.6 10^3/uL (4.3-11.0)
[2017-07-17 04:59] LABS: ANION GAP 7 MMOL/L (5-14); BLOOD UREA NITROGEN 13 MG/DL (7-18); BUN/CREATININE RATIO 17; CALCIUM 8.1 MG/DL (8.5-10.1); CARBON DIOXIDE 22 MMOL/L (21-32); CHLORIDE 112 MMOL/L (98-107); CREATININE SERUM 0.76 MG/DL (0.60-1.30); GFR ESTIMATED > 60; GLUCOSE 110 MG/DL (70-105); MAGNESIUM 1.6 MG/DL (1.8-2.4); PHOSPHORUS 2.7 MG/DL (2.3-4.7); POTASSIUM 4.1 MMOL/L (3.6-5.0); SODIUM 141 MMOL/L (135-145)
[2017-07-17 05:25] LABS: THYROID STIMULATING HORMONE 2.69 UIU/ML (0.35-4.94)
[2017-07-17] MEDS: NS IV 1000 ML 1,000 ML IV SCH ×2 (05:54→23:49)
[2017-07-17] MEDS: MAGNESIUM 1 GM/100 ML IVPB 100 ML IV SCH ×3 (05:54→10:08)
[2017-07-17] MEDS: PANTOPRAZOLE 20 MG TABLET (PROTONIX) PO SCH ×2 (05:54→09:17)
[2017-07-17] MEDS ORDERED: MAGNESIUM 1 GM/100 ML IVPB 100 ML IV SCH (06:00)
[2017-07-17] MEDS ORDERED: POTASSIUM CL 10MEQ/50ML IVPB 50 ML IV SCH (06:00)
[2017-07-17] MEDS ORDERED: KCL 20 MEQ TAB (K-DUR) PO SCH (06:00)
--- NOTE | 2017-07-17 08:57 | Diagnostic Imaging Report ---
INDICATION: Cough, PE. FINDINGS: Bilateral infiltrates showed no change. Heart size is stable. No effusion or pneumothorax. IMPRESSION: Unchanged bilateral infiltrates. Dictated by: Dictated on workstation # [id number]
[2017-07-17] MEDS ORDERED: NON-FORMULARY MEDICATION 1 EA EA (Lactobacillus Rhamnosus GG (Culturelle) 1 CAP) PO SCH (09:00)
[2017-07-17] MEDS: OLMESARTAN 20 MG (BENICAR) TABLET PO SCH (09:16)
[2017-07-17] MEDS: LACTOBACILLUS Acidoph/Bulgar (LACTINEX/FLORANEX) TAB PO SCH (09:16)
[2017-07-17] MEDS: amLODIPine 5 MG (NORVASC) TAB PO SCH (09:16)
[2017-07-17] MEDS: DOCUSATE SODIUM 100 MG (COLACE) CAP PO SCH (09:16)
[2017-07-17] MEDS: LORATADINE (CLARITIN) 10 MG TAB PO SCH (09:17)
[2017-07-17] MEDS: APIXABAN 5 MG (ELIQUIS) TABLET PO SCH ×2 (09:17→20:27)
[2017-07-17] MEDS: MULTIVIT W/MINERALS TAB (THERAGRAN M) PO SCH (09:17)
[2017-07-17] MEDS: CAL. POLYCARBOPHIL 625 MG (FIBERCON) TAB PO SCH (09:17)
[2017-07-17] MEDS: FLUTICASONE NASAL SPRAY (FLONASE) 16 GM BTL NS SCH (09:19)
--- NOTE | 2017-07-17 09:51 | Progress Note-Hospitalist ---
Subjective HPI/CC On Admission Date Seen by Provider: Jul 17, 2017 Time Seen by Provider: 09:30 CC: Dyspnea with bilateral PE's w/left leg DVT HPI: This is a 76-year-old white female of Dr. San'julio with a recent history of acute diverticulitis recurrent type weeks ago which completed Cipro and Flagyl regimen but one week later had hives then 4 weeks after that began having a cough that started out as a nuisance but then became more frequent and short of breath so she presented to the emergency room yesterday found to have O2 sat of [address] scan of the chest angiogram revealed bilateral pulmonary emboli non-saddle. Venous Doppler ultrasound showed extensive clot of the left lower leg so she was placed in ICU placed on oxygen and placed on Eliquis for anticoagulation therapy. Cardiology is evaluating her along with hematology to evaluate the source of the hypercoagulable state. She is up-to- date on her mammogram from last year and her colonoscopy was last done less than [address] Taylor actually completed her last colonoscopy. She takes a very low dose hormone but her sister has had a blood clot in the past. She has never had any blood clot problem in the past. She has not had any recent travel but she reports since the cough began she has started laying around more at the house and not being active. Subjective/Events-last exam patient remaines remains dyspneic with exertion with desaturation of her oxygenation. In addition she continues to cough with a nonproductive cough. Telemetry reveals multiple PACs but no A. fib. Echocardiogram is pending today. On 2 L she is at 9596 percent she's day number 2 of Apixaban Review of Systems Pulmonary: Dyspnea, Cough Neurological: Weakness Objective Exam Vital Signs Vital Sign - Last 12Hours 07/15/17 07/15/17 07/15/17 00:00 12:47 17:09 Temp 100.5 Pulse 86 Resp 22 B/P (MAP) 148/66 Pulse Ox 96 O2 Delivery Nasal Cannula O2 Flow Rate 2.00 FiO2 28 Capillary Refill : Less Than 3 Seconds General Appearance: Chronically ill HEENT: Normal ENT Inspection Respiratory: Crackles, Other (dyspneic) Cardiovascular: Extra Beats Gastrointestinal: Non Tender, Soft Back: Normal Inspection Extremity: Calf Tenderness Neurologic/Psychiatric: Alert, Oriented x3, Depressed Affect Results/Procedures Lab Laboratory Tests 8/19/17 03:51 Assessment/Plan Assessment and Plan Assess & Plan/Chief Complaint Assessment: Bilateral pulmonary emboli with left lower extremity extensive DVT in patient without prior history of blood clots but sister has had DVT and pt is on hormones-Constanza number 2 of Apixaban Recent episode of acute diverticulitis managed on by mouth antibiotics recurrent issue and last colonoscopy less than [address] Taylor- Hormone therapy-Will DC Hypertension Hypertriglyceridemia Irritable bowel syndrome Osteoporosis anemia hemoglobins down to 9.5-we'll Hemoccult stools bilateral pulmonary infiltrates suspicious for interstitial lung disease will add steroids hypomagnesemia will replace We'll transfer to the floor this afternoon on telemetry if okay with CAROLINE Garcia MD Jul 17, 2017 09:51
[2017-07-17] MEDS: methylPREDNISolone 125 MG (Solu-MEDROL) VIAL IVP SCH ×3 (12:07→23:49)
--- NOTE | 2017-07-17 12:38 | Progress Note-Cardiology ---
Cardiology SOAP Progress Note Subjective: No shortness of breath rest, but does have shortness of breath and dizziness with exertion Objective: I&O/Vital Signs Vital Sign - Last 12Hours 07/17/17 07/17/17 07/17/17 07/17/17 01:00 01:00 02:00 02:11 Pulse 69 73 69 Resp 26 30 B/P (MAP) 138/71 115/58 Pulse Ox 96 94 93 O2 Delivery Nasal Cannula Nasal Cannula Nasal Cannula O2 Flow Rate 3.00 3.00 2.00 07/17/17 07/17/17 07/17/17 07/17/17 03:00 04:00 04:00 05:00 Pulse 70 72 69 Resp 32 28 26 B/P (MAP) 106/55 132/77 138/77 Pulse Ox 93 97 94 O2 Delivery Nasal Cannula Nasal Cannula Nasal Cannula Nasal Cannula O2 Flow Rate 3.00 3.00 3.00 3.00 07/17/17 07/17/17 07/17/17 07/17/17 06:00 06:51 07:00 08:00 Temp 97.8 Pulse 73 68 73 Resp 20 25 B/P (MAP) 144/78 133/73 Pulse Ox 92 95 95 O2 Delivery Nasal Cannula Nasal Cannula Nasal Cannula O2 Flow Rate 3.00 2.00 2.00 07/17/17 07/17/17 07/17/17 07/17/17 08:00 09:00 10:00 10:40 Pulse 71 74 Resp 30 12 B/P (MAP) 117/64 120/67 Pulse Ox 95 93 93 O2 Delivery Nasal Cannula Nasal Cannula Nasal Cannula Nasal Cannula O2 Flow Rate 2.00 2.00 2.00 1.00 07/17/17 07/17/17 07/17/17 11:00 11:59 12:00 Temp 98.2 Pulse 72 76 Resp 14 25 B/P (MAP) 125/63 122/68 Pulse Ox 92 91 O2 Delivery Nasal Cannula Nasal Cannula Nasal Cannula O2 Flow Rate 2.00 2.00 2.00 Weight (Pounds): 139 Weight (Ounces): 3.0 Weight (Calculated Kilograms): 63.367998 Constitutional: AAO x 3, well-developed, well-nourished Respiratory: crackles (bi-basilar), other Cardiovascular: regular rate-rhythm, S1 and S2, systolic murmur Gastrointestional: soft, audible bowel sounds Extremities: No clubbing, No cyanosis, No significant edema Neurologic/Psychiatric: grossly intact Results/Procedures: Labs Laboratory Tests 07/17/17 03:51: White Blood Count 6.6, Red Blood Count 3.30L, Hemoglobin 9.5L, Hematocrit 30L, Mean Corpuscular Volume 89, Mean Corpuscular Hemoglobin 29, Mean Corpuscular Hemoglobin Concent 32, Red Cell Distribution Width 14.0, Platelet Count 377, Mean Platelet Volume 10.0, Neutrophils (%) (Auto) 59, Lymphocytes (%) (Auto) 17 , Monocytes (%) (Auto) 16H, Eosinophils (%) (Auto) 8, Basophils (%) (Auto) 1, Neutrophils # (Auto) 3.9, Lymphocytes # (Auto) 1.1, Monocytes # (Auto) 1.1H, Eosinophils # (Auto) 0.5H, Basophils # (Auto) 0.0, Erythrocyte Sedimentation Rate 68H, Sodium Level 141, Potassium Level 4.1, Chloride Level 112H, Carbon Dioxide Level 22, Anion Gap 7, Blood Urea Nitrogen 13, Creatinine 0.76, Estimat Glomerular Filtration Rate > 60, BUN/Creatinine Ratio 17, Glucose Level 110H, Calcium Level 8.1L, Phosphorus Level 2.7, Magnesium Level 1.6L, Thyroid Stimulating Hormone (TSH) 2.69 Microbiology 07/15/17 Blood Culture - Preliminary, Resulted No growth Laboratory Tests 07/16/17 03:52 07/17/17 03:51 A/P: Assessment: Large PE with acute resp failure (as indicated by a presenting oxygen sat of 81% ) and mod pulm htn L-sided DVT seen on leg venous Doppler of 07/15/17 Echo of 07/17/17: LVEF 65-70%, mild MR, mild to mod TR, PASP 55-60 mmHg Isolated but frequent PACs No evidence of ACS Hypertension, by history Hyperlipidemia, by history No significant CAD and normal LVEF on card cath of Oct 2011 Plan: * Medical Service managing PE * PE-treatment dose of apixaban * Echo results as noted above * Monitor labs. Reduce ivf * ReplenTABBY Fletcher MD FACP [facility] CCDS Jul 17, 2017 12:38
[2017-07-17] MEDS: MONTELUKAST 10 MG (SINGULAIR) TAB PO SCH (20:27)
[2017-07-17] MEDS ORDERED: MELATONIN 3 MG TABLET PO ONE (21:00)
[2017-07-18] VITALS: BP 132/61
[2017-07-18] MEDS: RT-ALBUTEROL SULF 2.5 MG/3 ML PRE-MIX VIAL IH SCH ×6 (02:26→22:22)
[2017-07-18 04:00] VITALS: BP 128/70
[2017-07-18 05:23] LABS: RED BLOOD COUNT 3.37 10^6/uL (4.35-5.85); RED CELL DISTRIBUTION WIDTH 14.1 % (10.0-14.5); WHITE BLOOD COUNT 5.2 10^3/uL (4.3-11.0)
[2017-07-18 06:08] LABS: ANION GAP 11 MMOL/L (5-14); BLOOD UREA NITROGEN 16 MG/DL (7-18); BUN/CREATININE RATIO 20; CALCIUM 8.7 MG/DL (8.5-10.1); CARBON DIOXIDE 19 MMOL/L (21-32); CHLORIDE 110 MMOL/L (98-107); CREATININE SERUM 0.81 MG/DL (0.60-1.30); GFR ESTIMATED > 60; GLUCOSE 215 MG/DL (70-105); MAGNESIUM 1.9 MG/DL (1.8-2.4); POTASSIUM 3.7 MMOL/L (3.6-5.0); SODIUM 140 MMOL/L (135-145)
[2017-07-18] MEDS: methylPREDNISolone 125 MG (Solu-MEDROL) VIAL IVP SCH ×3 (06:13→18:15)
[2017-07-18 06:46] VITALS: BP 128/70
[2017-07-18 08:00] VITALS: BP 122/65
[2017-07-18] MEDS: CAL. POLYCARBOPHIL 625 MG (FIBERCON) TAB PO SCH (08:47)
[2017-07-18] MEDS: LACTOBACILLUS Acidoph/Bulgar (LACTINEX/FLORANEX) TAB PO SCH (08:47)
[2017-07-18] MEDS: APIXABAN 5 MG (ELIQUIS) TABLET PO SCH ×2 (08:47→20:36)
[2017-07-18] MEDS: LORATADINE (CLARITIN) 10 MG TAB PO SCH (08:47)
[2017-07-18] MEDS: amLODIPine 5 MG (NORVASC) TAB PO SCH (08:47)
[2017-07-18] MEDS: MULTIVIT W/MINERALS TAB (THERAGRAN M) PO SCH (08:47)
[2017-07-18] MEDS: OLMESARTAN 20 MG (BENICAR) TABLET PO SCH (08:47)
[2017-07-18] MEDS: DOCUSATE SODIUM 100 MG (COLACE) CAP PO SCH (08:48)
[2017-07-18] MEDS: FLUTICASONE NASAL SPRAY (FLONASE) 16 GM BTL NS SCH (09:02)
--- NOTE | 2017-07-18 11:08 | Progress Note-Hospitalist ---
Subjective HPI/CC On Admission Date Seen by Provider: Jul 18, 2017 Time Seen by Provider: 10:15 CC: Dyspnea with bilateral PE's w/left leg DVT HPI: This is a 76-year-old white female of Dr. San'julio with a recent history of acute diverticulitis recurrent type weeks ago which completed Cipro and Flagyl regimen but one week later had hives then 4 weeks after that began having a cough that started out as a nuisance but then became more frequent and short of breath so she presented to the emergency room yesterday found to have O2 sat of [address] scan of the chest angiogram revealed bilateral pulmonary emboli non-saddle. Venous Doppler ultrasound showed extensive clot of the left lower leg so she was placed in ICU placed on oxygen and placed on Eliquis for anticoagulation therapy. Cardiology is evaluating her along with hematology to evaluate the source of the hypercoagulable state. She is up-to- date on her mammogram from last year and her colonoscopy was last done less than [address] Taylor actually completed her last colonoscopy. She takes a very low dose hormone but her sister has had a blood clot in the past. She has never had any blood clot problem in the past. She has not had any recent travel but she reports since the cough began she has started laying around more at the house and not being active. Subjective/Events-last exam patient feels better on the steroids. She still has a mild cough. She now relates increased shortness of breath over the last year or 2. She's had a cough for [address] did show some groundglass opacities with some emphysematous changes in addition to the pulmonary emboli. Review of Systems Pulmonary: Dyspnea, Cough Neurological: Weakness Objective Exam Vital Signs Vital Sign - Last 12Hours 07/15/17 07/15/17 07/15/17 00:00 12:47 17:09 Temp 100.5 Pulse 86 Resp 22 B/P (MAP) 148/66 Pulse Ox 96 O2 Delivery Nasal Cannula O2 Flow Rate 2.00 FiO2 28 Capillary Refill : Less Than 3 Seconds General Appearance: Mild Distress HEENT: Normal ENT Inspection Neck: Supple Respiratory: Crackles Cardiovascular: Regular Rate, Rhythm, No Gallop, No Murmur Gastrointestinal: Non Tender, Soft Rectal: Deferred Extremity: Normal Capillary Refill, No Pedal Edema Neurologic/Psychiatric: Alert, Oriented x3, No Motor/Sensory Deficits, Normal Mood/Affect Results/Procedures Lab Laboratory Tests 07/18/17 04:14 Assessment/Plan Assessment and Plan Assess & Plan/Chief Complaint Assessment: Bilateral pulmonary emboli with left lower extremity extensive DVT in patient without prior history of blood clots but sister has had DVT and pt is on hormones-Day number 3 of Apixaban Recent episode of acute diverticulitis managed on by mouth antibiotics recurrent issue and last colonoscopy less than [address] Taylor- Hormone therapy-Will DC Hypertension Hypertriglyceridemia Irritable bowel syndrome Osteoporosis anemia hemoglobins down to 9.5-we'll Hemoccult stools-currently stable bilateral pulmonary infiltrates suspicious for interstitial lung disease will add steroids hypomagnesemia will replace emphysema by CT hyperglycemia secondary to steroids patient is improved on steroids I discussed at length with her the need for further evaluation with pulmonary function tests and pulmonology consult. Will Hep-Lock her IV fluids and increase her activity. CAROLINE WARREN MD Jul 18, 2017 11:07
--- NOTE | 2017-07-18 12:54 | Progress Note-Cardiology ---
Cardiology SOAP Progress Note Subjective: More ambulatory today; walking in the stubbs Exertional shortness of breath slowly improving No cp or palp or syncope Objective: I&O/Vital Signs Vital Sign - Last 12Hours 07/18/17 07/18/17 07/18/17 07/18/17 02:26 04:00 06:40 06:46 Temp 98.2 Pulse 81 88 Resp 17 B/P (MAP) 128/70 Pulse Ox 92 98 92 96 O2 Delivery Nasal Cannula Nasal Cannula Nasal Cannula O2 Flow Rate 1.50 2.00 1.50 FiO2 28 07/18/17 07/18/17 07/18/17 07/18/17 08:00 08:00 10:20 11:24 Temp 98.2 Pulse 66 Resp 24 B/P (MAP) 122/65 Pulse Ox 92 94 92 O2 Delivery Nasal Cannula Nasal Cannula Nasal Cannula O2 Flow Rate 1.50 1.00 1.50 1.00 Weight (Pounds): 139 Weight (Ounces): 3.0 Weight (Calculated Kilograms): 63.715083 Constitutional: AAO x 3, well-developed, well-nourished Respiratory: crackles (bi-basilar), other Cardiovascular: regular rate-rhythm, S1 and S2, systolic murmur Gastrointestional: soft, audible bowel sounds Extremities: No clubbing, No cyanosis, No significant edema Neurologic/Psychiatric: grossly intact Results/Procedures: Labs Laboratory Tests 07/18/17 04:14: White Blood Count 5.2, Red Blood Count 3.37L, Hemoglobin 9.7L, Hematocrit 30L, Mean Corpuscular Volume 89, Mean Corpuscular Hemoglobin 29, Mean Corpuscular Hemoglobin Concent 32, Red Cell Distribution Width 14.1, Platelet Count 386, Mean Platelet Volume 10.0, Sodium Level 140, Potassium Level 3.7, Chloride Level 110H, Carbon Dioxide Level 19L, Anion Gap 11, Blood Urea Nitrogen 16, Creatinine 0.81, Estimat Glomerular Filtration Rate > 60, BUN/Creatinine Ratio 20, Glucose Level 215H, Calcium Level 8.7, Magnesium Level 1.9 Microbiology 07/15/17 Blood Culture - Preliminary, Resulted No growth 07/15/17 MRSA Screen - Final, Complete MRSA not isolated Laboratory Tests 07/17/17 03:51 07/18/17 04:14 A/P: Assessment: Large PE with acute resp failure (as indicated by a presenting oxygen sat of 81% ) and mod pulm htn L-sided DVT seen on leg venous Doppler of 07/15/17 Echo of 07/17/17: LVEF 65-70%, mild MR, mild to mod TR, PASP 55-60 mmHg Isolated but frequent PACs No evidence of ACS Hypertension, by history Hyperlipidemia, by history No significant CAD and normal LVEF on card cath of Oct 2011 Plan: * Medical Service managing PE * PE-treatment dose of apixaban * Echo results as noted above * Monitor labs. D/c ivf TABBY LOO MD FACP FACC CCDS Jul 18, 2017 12:54
[2017-07-18 16:22] VITALS: BP 122/64
[2017-07-18 23:30] VITALS: BP 132/79
[2017-07-19] MEDS: methylPREDNISolone 125 MG (Solu-MEDROL) VIAL IVP SCH ×5 (00:46→23:48)
[2017-07-19 05:43] LABS: BASOPHILS % (AUTO) 0 % (0-10); EOSINOPHILS % (AUTO) 0 % (0-10); LYMPHOCYTES # (AUTO) 0.5 X 10^3 (1.0-4.0); LYMPHOCYTES % (AUTO) 4 % (12-44); MEAN CORPUSCULAR HEMOGLOBIN 29 PG (25-34); MEAN CORPUSCULAR HGB CONC 32 G/DL (32-36); MEAN CORPUSCULAR VOLUME 89 FL (80-99); MEAN PLATELET VOLUME 9.7 FL (7.4-10.4); MONOCYTES # (AUTO) 0.5 X 10^3 (0.0-1.0); MONOCYTES % (AUTO) 4 % (0-12); NEUTROPHILS # (AUTO) 10.1 X 10^3 (1.8-7.8); NEUTROPHILS % (AUTO) 92 % (42-75); PLATELET COUNT 407 10^3/uL (130-400); RED BLOOD COUNT 3.44 10^6/uL (4.35-5.85); RED CELL DISTRIBUTION WIDTH 14.1 % (10.0-14.5); WHITE BLOOD COUNT 11.1 10^3/uL (4.3-11.0)
[2017-07-19] MEDS: PANTOPRAZOLE 20 MG TABLET (PROTONIX) PO SCH (05:49)
[2017-07-19] MEDS: RT-ALBUTEROL SULF 2.5 MG/3 ML PRE-MIX VIAL IH SCH ×6 (06:00→22:06)
[2017-07-19 06:15] LABS: ANISOCYTOSIS SLIGHT; BAND NEUTROPHILS 0 %; BASOPHILS % (MANUAL) 0 %; EOSINOPHILS % (MANUAL) 0 %; LYMPHOCYTES % (MANUAL) 3 %; NEUTROPHILS % (MANUAL) 93 %
[2017-07-19 06:46] LABS: ANION GAP 9 MMOL/L (5-14); BLOOD UREA NITROGEN 20 MG/DL (7-18); BUN/CREATININE RATIO 24; CALCIUM 8.7 MG/DL (8.5-10.1); CARBON DIOXIDE 22 MMOL/L (21-32); CHLORIDE 109 MMOL/L (98-107); CREATININE SERUM 0.82 MG/DL (0.60-1.30); GFR ESTIMATED > 60; GLUCOSE 146 MG/DL (70-105); POTASSIUM 4.2 MMOL/L (3.6-5.0); SODIUM 140 MMOL/L (135-145)
[2017-07-19 08:00] VITALS: BP 136/75
--- NOTE | 2017-07-19 09:13 | Progress Note-Cardiology ---
Cardiology SOAP Progress Note Objective: I&O/Vital Signs Weight (Pounds): 139 Weight (Ounces): 3.0 Weight (Calculated Kilograms): 63.857624 Constitutional: AAO x 3, well-developed, well-nourished Respiratory: crackles (bi-basilar), other Cardiovascular: regular rate-rhythm, S1 and S2, systolic murmur Gastrointestional: soft, audible bowel sounds Extremities: No clubbing, No cyanosis, No significant edema Neurologic/Psychiatric: grossly intact Results/Procedures: Labs Microbiology 07/15/17 Blood Culture - Final, Complete No growth 07/15/17 MRSA Screen - Final, Complete MRSA not isolated A/P: Assessment: Large PE with acute resp failure (as indicated by a presenting oxygen sat of 81% ) and mod pulm htn L-sided DVT seen on leg venous Doppler of 07/15/17 Echo of 07/17/17: LVEF 65-70%, mild MR, mild to mod TR, PASP 55-60 mmHg Isolated but frequent PACs No evidence of ACS Hypertension, by history Hyperlipidemia, by history No significant CAD and normal LVEF on card cath of Oct 2011 Plan: * Medical Service managing PE * PE-treatment dose of apixaban * Monitor lab DIMITRIOS DODD Jul 19, 2017 09:13
[2017-07-19] MEDS: APIXABAN 5 MG (ELIQUIS) TABLET PO SCH ×2 (09:18→20:02)
[2017-07-19] MEDS: CAL. POLYCARBOPHIL 625 MG (FIBERCON) TAB PO SCH (09:18)
[2017-07-19] MEDS: DOCUSATE SODIUM 100 MG (COLACE) CAP PO SCH (09:18)
[2017-07-19] MEDS: MULTIVIT W/MINERALS TAB (THERAGRAN M) PO SCH (09:18)
[2017-07-19] MEDS: FLUTICASONE NASAL SPRAY (FLONASE) 16 GM BTL NS SCH (09:18)
[2017-07-19] MEDS: amLODIPine 5 MG (NORVASC) TAB PO SCH (09:18)
[2017-07-19] MEDS: LACTOBACILLUS Acidoph/Bulgar (LACTINEX/FLORANEX) TAB PO SCH (09:18)
[2017-07-19] MEDS: LORATADINE (CLARITIN) 10 MG TAB PO SCH (09:19)
[2017-07-19] MEDS: OLMESARTAN 20 MG (BENICAR) TABLET PO SCH (09:22)
--- NOTE | 2017-07-19 12:33 | Progress Note-Hospitalist ---
Standard Progress Note Progress Notes/Assess & Plan Date Seen 07/19/17 Time Seen by Provider: 12:05 Diagnosis Assessment: Bilateral pulmonary emboli with left lower extremity extensive DVT in patient without prior history of blood clots but sister has had DVT and pt is on hormones Recent episode of acute diverticulitis managed on by mouth antibiotics recurrent issue and last colonoscopy less than [address] Taylor Hormone therapy Hypertension Hypertriglyceridemia Irritable bowel syndrome Osteoporosis Assess & Plan/Chief Complaint The patient is a 76-year-old white female who was admitted last after presenting to the emergency room with hypoxia. Workup in the emergency room revealed considerable pulmonary embolus with a saddle component. She was also quite hypoxic. She reported that nearly 2 weeks prior to that she had had 2 days with pain in the left calf but no swelling redness or warmth to the leg. Ultrasound confirmed extensive DVT in the left lower leg. She remains oxygen dependent at this point. Arrangements have been made for home oxygen delivery. She is to see Dr. Whitten from pulmonology today. She tells me she has already completed pulmonary function testing. Physical exam: The patient is sitting in a chair at bedside. She is able to speak in full sentences but is tachypneic. Lungs are clear to auscultation. No wheezing is noted. CV is regular. Impression: Hypoxia secondary to bilateral pulmonary emboli/saddle embolus. 2.DVT left calf Plan: Await completion of pulmonary consultation. Note: Considerable period was devoted to the pathophysiology of pulmonary emboli and the resolution of the obstruction over time. Labs Laboratory Tests 07/18/17 04:14 07/19/17 05:23 IFTIKHAR SHEETS MD Jul 19, 2017 12:33
--- NOTE | 2017-07-19 14:31 | Progress Note-Cardiology ---
Cardiology SOAP Progress Note Subjective: Shortness of breath is considerably improved Cough is modestly improved No cp or palp or syncope or significant leg swelling Objective: I&O/Vital Signs Vital Sign - Last 12Hours 07/19/17 08:00 Temp 98.4 Pulse 75 Resp 20 B/P (MAP) 136/75 Pulse Ox 98 O2 Delivery Nasal Cannula O2 Flow Rate 1.00 Weight (Pounds): 139 Weight (Ounces): 3.0 Weight (Calculated Kilograms): 63.166732 Constitutional: AAO x 3, well-developed, well-nourished Respiratory: crackles (bi-basilar), other Cardiovascular: regular rate-rhythm, S1 and S2, systolic murmur Gastrointestional: soft, audible bowel sounds Extremities: No clubbing, No cyanosis, No significant edema Neurologic/Psychiatric: grossly intact Results/Procedures: Labs Laboratory Tests 07/18/17 16:17: Glucometer 191H 07/19/17 05:23: White Blood Count 11.1H, Red Blood Count 3.44L, Hemoglobin 9.8L, Hematocrit 31L , Mean Corpuscular Volume 89, Mean Corpuscular Hemoglobin 29, Mean Corpuscular Hemoglobin Concent 32, Red Cell Distribution Width 14.1, Platelet Count 407H, Mean Platelet Volume 9.7, Neutrophils (%) (Auto) 92H, Lymphocytes (%) (Auto) 4L , Monocytes (%) (Auto) 4, Eosinophils (%) (Auto) 0, Basophils (%) (Auto) 0, Neutrophils # (Auto) 10.1H, Lymphocytes # (Auto) 0.5L, Monocytes # (Auto) 0.5, Eosinophils # (Auto) 0.0, Basophils # (Auto) 0.0, Neutrophils % (Manual) 93, Lymphocytes % (Manual) 3, Monocytes % (Manual) 4, Eosinophils % (Manual) 0, Basophils % (Manual) 0, Band Neutrophils 0, Anisocytosis SLIGHT, Elliptocytes SLIGHT, Sodium Level 140, Potassium Level 4.2, Chloride Level 109H, Carbon Dioxide Level 22, Anion Gap 9, Blood Urea Nitrogen 20H, Creatinine 0.82, Estimat Glomerular Filtration Rate > 60, BUN/Creatinine Ratio 24, Glucose Level 146H, Calcium Level 8.7 07/19/17 10:16: Microbiology 07/15/17 Blood Culture - Preliminary, Resulted No growth 8/17/17 MRSA Screen - Final, Complete MRSA not isolated A/P: Assessment: Large PE with acute resp failure (as indicated by a presenting oxygen sat of 81% ) and mod pulm htn L-sided DVT seen on leg venous Doppler of 07/15/17 Echo of 07/17/17: LVEF 65-70%, mild MR, mild to mod TR, PASP 55-60 mmHg Isolated but frequent PACs No evidence of ACS Hypertension, by history Hyperlipidemia, by history No significant CAD and normal LVEF on card cath of Oct 2011 Plan: * Medical Service managing PE * PE-treatment dose of apixaban * Monitor labs * Advised pulm eval.She is awaiting consultation with TABBY Marie MD FACP FAC CCDS Jul 19, 2017 14:31
[2017-07-19 16:00] VITALS: BP 131/74
[2017-07-19 19:20] VITALS: BP 130/75
[2017-07-19 23:31] VITALS: BP 129/78
[2017-07-20] MEDS: RT-ALBUTEROL SULF 2.5 MG/3 ML PRE-MIX VIAL IH SCH ×4 (02:00→14:51)
[2017-07-20] MEDS: PANTOPRAZOLE 20 MG TABLET (PROTONIX) PO SCH (05:35)
[2017-07-20] MEDS: methylPREDNISolone 125 MG (Solu-MEDROL) VIAL IVP SCH ×2 (05:35→13:32)
[2017-07-20 08:00] VITALS: BP 133/63
[2017-07-20] MEDS: FLUTICASONE NASAL SPRAY (FLONASE) 16 GM BTL NS SCH (09:46)
[2017-07-20] MEDS: APIXABAN 5 MG (ELIQUIS) TABLET PO SCH (09:48)
[2017-07-20] MEDS: LORATADINE (CLARITIN) 10 MG TAB PO SCH (09:48)
[2017-07-20] MEDS: CAL. POLYCARBOPHIL 625 MG (FIBERCON) TAB PO SCH (09:48)
[2017-07-20] MEDS: OLMESARTAN 20 MG (BENICAR) TABLET PO SCH (09:48)
[2017-07-20] MEDS: DOCUSATE SODIUM 100 MG (COLACE) CAP PO SCH (09:48)
[2017-07-20] MEDS: LACTOBACILLUS Acidoph/Bulgar (LACTINEX/FLORANEX) TAB PO SCH (09:48)
[2017-07-20] MEDS: amLODIPine 5 MG (NORVASC) TAB PO SCH (09:48)
[2017-07-20] MEDS: MULTIVIT W/MINERALS TAB (THERAGRAN M) PO SCH (09:48)
--- NOTE | 2017-07-20 10:30 | Progress Note-Cardiology ---
Cardiology SOAP Progress Note Subjective: Sitting up in bed. Spouse at the bedside. Feels her shortness of breath is unchanged from the day before. No c/o CP, palpitations, syncope or near syncope. Objective: I&O/Vital Signs Vital Sign - Last 12Hours 07/19/17 07/20/17 07/20/17 07/20/17 23:31 02:29 07:19 08:00 Temp 96.7 96.9 Pulse 77 83 Resp 20 18 B/P (MAP) 129/78 133/63 Pulse Ox 96 98 98 O2 Delivery Nasal Cannula Nasal Cannula Nasal Cannula Nasal Cannula O2 Flow Rate 2.00 2.00 2.00 2.00 Weight (Pounds): 139 Weight (Ounces): 3.0 Weight (Calculated Kilograms): 63.343109 Constitutional: AAO x 3, well-developed, well-nourished Respiratory: crackles (bi-basilar), other Cardiovascular: regular rate-rhythm, S1 and S2, systolic murmur Gastrointestional: soft, audible bowel sounds Extremities: No clubbing, No cyanosis, No significant edema Neurologic/Psychiatric: grossly intact Results/Procedures: Labs Laboratory Tests 07/19/17 16:10: Glucometer 184H 07/20/17 05:41: Glucometer 134H Microbiology 07/15/17 Blood Culture - Preliminary, Resulted No growth 07/15/17 MRSA Screen - Final, Complete MRSA not isolated A/P: Assessment: Large PE with acute resp failure (as indicated by a presenting oxygen sat of 81% ) and mod pulm htn L-sided DVT seen on leg venous Doppler of 07/15/17 Echo of 07/17/17: LVEF 65-70%, mild MR, mild to mod TR, PASP 55-60 mmHg Isolated but frequent PACs No evidence of ACS Hypertension, by history Hyperlipidemia, by history No significant CAD and normal LVEF on card cath of Oct 2011 Plan: * Medical Service managing PE * PE-treatment dose of apixaban * Monitor labs * Advised pulm eval.She is awaiting consultation with Dr Whitten * F/U as an out pt DIMITRIOS DODD Jul 20, 2017 10:29
[2017-07-20 10:44] LABS: HOMOCYSTEINE 12.6 umol/L (<=10.3)
--- NOTE | 2017-07-20 12:13 | Progress Note-Hospitalist ---
Standard Progress Note Progress Notes/Assess & Plan Date Seen 07/20/17 Time Seen by Provider: 12:10 Diagnosis Assessment: Bilateral pulmonary emboli with left lower extremity extensive DVT in patient without prior history of blood clots but sister has had DVT and pt is on hormones Recent episode of acute diverticulitis managed on by mouth antibiotics recurrent issue and last colonoscopy less than [address] Taylor Hormone therapy Hypertension Hypertriglyceridemia Irritable bowel syndrome Osteoporosis Assess & Plan/Chief Complaint The patient continues to improve by the day. It is noted that her SaO2's have climbed on the previous dose of 2 L by nasal cannula. This is encouraging. Arrangements have already been made for her to have home oxygen. Accordingly we will discharge her at this time. Dr. Whitten will not be available until and therefore she will see him as an outpatient. Physical exam: The patient is sitting up and is pleasant and alert. Lungs are clear to auscultation. CV is regular without murmur. Extremities show no pedal edema. Impression: Bilateral pulmonary emboli with saddle feature. 2.left lower extremity DVT Plan: Discharge. See discharge sequence for further information Labs Laboratory Tests 07/19/17 05:23 Copy Copies To 1: SAYDA ELI RODNEY K MD Jul 20, 2017 12:13
[2017-07-20] MEDS ORDERED: APIX5TAB PO (12:29)
--- NOTE | 2017-07-20 12:31 | Discharge Instructions ---
Discharge Instructions Patient Instructions Goal/Follow Up Appt: Follow up appointments with Dr. Tyler in about [address] Whitten at his office in one week Patient Instructions: See Dr. San in one week. Use oxygen at 2 L per nasal cannula Move about as tolerated. Activity & Diet Discharge Diet: No Restrictions Activity as Tolerated: Yes IFTIKHAR SHEETS MD Jul 20, 2017 12:31
[2017-07-20 13:47] LABS: FACTOR 5 (LEIDEN) MUTATION Negative (Negative)
[2017-07-20] MEDS ORDERED: MIDAZOLAM 5 MG/5 ML (VERSED) VIAL IV ONE (15:39)
[2017-07-20] MEDS ORDERED: ROCURONIUM 50 MG/5 ML (ZEMURON) VIAL IV ONE (15:39)
[2017-07-20 15:47] LABS: FACTOR 5 LEIDEN INTERP See Footnote
[2017-07-21 08:29] LABS: FACTOR II 20210 MUTATION INT See Footnote
[2017-07-21 08:30] LABS: FACTOR II 20210 MUTATIONC Hom Mut
[2017-07-22] MEDS ORDERED: APIXABAN 5 MG (ELIQUIS) TABLET PO SCH (21:00)
== END 2017-07-20 15:40 | disposition home or self-care (01) | DRG 175 ==
LOC: EDUNIT# 12:23 → ER 12:25 → ICU 15:08 → 4TH 07-17 15:53
PROVIDERS: ADMIT Internal Medicine; ATTEND Internal Medicine
DX: I26.99 Other pulmonary embolism without acute cor pulmonale (principal); J96.00 Acute respiratory failure, unspecified whether with hypoxia or hypercapnia; I82.412 Acute embolism and thrombosis of left femoral vein; I82.432 Acute embolism and thrombosis of left popliteal vein; I82.492 Acute embolism and thrombosis of other specified deep vein of left lower extremity; I10 Essential (primary) hypertension; E78.5 Hyperlipidemia, unspecified; K21.9 Gastro-esophageal reflux disease without esophagitis; K57.90 Diverticulosis of intestine, part unspecified, without perforation or abscess without bleeding; K58.9 Irritable bowel syndrome, unspecified; M81.0 Age-related osteoporosis without current pathological fracture; M19.91 Primary osteoarthritis, unspecified site; D64.9 Anemia, unspecified; E83.42 Hypomagnesemia; J43.8 Other emphysema; R73.9 Hyperglycemia, unspecified; T38.0X5A Adverse effect of glucocorticoids and synthetic analogues, initial encounter; I08.1 Rheumatic disorders of both mitral and tricuspid valves; I49.1 Atrial premature depolarization; Z79.890 Hormone replacement therapy
CPT/HCPCS: 36415; 71010; 71020; 71275; 80048; 80053; 81240; 81241; 82962; 83090; 83605; 83735; 83880; 84100; 84443; 84484; 85007; 85025; 85027; 85652; 87040; 87081; 93005; 93306; 93970; 94060; 94640; 94664; 94729; 94760; 94761

== ENCOUNTER → 2017-07-15 | Outpatient (CLI) | payer MEDICARE ==
[~2017-07-15] MED LIST changes: +AMLO5TAB2 PO; +CA C1TAB75 PO; +FENO135C4 PO; +FLUT9.9S NSEACH; +KRIL1CAP2 PO; +LACT1CAP39 PO; +LEVO500T80 PO; +LEVO5TAB28 PO; +MONT10TA24 PO; +NAPR500T PO; +PRD20T PO; +UBID100C44 PO
--- NOTE | 2017-07-15 10:47 | Diagnostic Imaging Report ---
CLINICAL INDICATION: Patient with cough x2 months, shortness of air, and sinusitis. EXAM: Axial CT scan of the brain performed without IV contrast. COMPARISON: Head CT without contrast dated 04/02/2015. FINDINGS: There is no evidence of acute cerebral infarct, intracranial hemorrhage, or gross mass effect. There are a few subtle focal areas of low-attenuation white matter changes in both cerebral hemispheres, likely representing chronic small-vessel ischemic disease. There is normal marx-white matter distinction. The brain parenchymal volume appears appropriate for patient's age. There is no significant midline shift or herniation. There is no evidence of hydrocephalus. The basal cisterns are unremarkable. The skull, extracranial soft tissue, and orbits are unremarkable. The paranasal sinuses are unremarkable. Temporal bone structures show no significant abnormality. IMPRESSION: 1: Stable CT scan of the brain with no evidence of acute intracranial process. 2: Mild age-related brain parenchymal changes. 3: There is no significant paranasal sinus disease. Dictated by: Dictated on workstation # [id number]
== END ==
LOC: RAD 10:23
PROVIDERS: ATTEND Internal Medicine
DX: R05 Cough (principal); R06.02 Shortness of breath; R41.0 Disorientation, unspecified
CPT/HCPCS: 70450

== ENCOUNTER 2017-08-23 08:32 | Outpatient (RCR) | payer MEDICARE ==
[~2017-08-23 08:32] MED LIST changes: +AMLO5TAB2 PO; +APIX5TAB PO; +CA C1TAB75 PO; +FENO135C4 PO; +FLUT9.9S NSEACH; +KRIL1CAP2 PO; +LACT1CAP39 PO; +LEVO500T80 PO; +LEVO5TAB28 PO; +MONT10TA24 PO; +NAPR500T PO; +PRD20T PO; +UBID100C44 PO
== END 2017-08-28 | disposition home or self-care (01) ==
LOC: PULM 08:32
PROVIDERS: ATTEND Nurse Practitioner Family
DX: I82.492 Acute embolism and thrombosis of other specified deep vein of left lower extremity (principal); I26.99 Other pulmonary embolism without acute cor pulmonale; R06.02 Shortness of breath; R09.02 Hypoxemia
CPT/HCPCS: 99211

== ENCOUNTER → 2017-09-20 | Outpatient (CLI) | payer MEDICARE ==
--- NOTE | 2017-09-20 16:23 | Diagnostic Imaging Report ---
PA and lateral views of the chest. INDICATION: Restrictive lung disease. COMPARISON: 07/15/2017 exam. FINDINGS: There is chronic interstitial thickening without focal infiltrate. The heart size is borderline enlarged. No effusion or pneumothorax. The mediastinum and chasity appear unremarkable. IMPRESSION: Unchanged chronic interstitial thickening. Dictated by: Dictated on workstation # [id number]
== END ==
LOC: RT 12:58
PROVIDERS: ATTEND Nurse Practitioner Family
DX: J98.4 Other disorders of lung (principal); I82.409 Acute embolism and thrombosis of unspecified deep veins of unspecified lower extremity; R09.02 Hypoxemia; I26.99 Other pulmonary embolism without acute cor pulmonale; R06.00 Dyspnea, unspecified
CPT/HCPCS: 71020; 94060; 94726; 94729

== ENCOUNTER 2017-10-11 11:08 | Outpatient (RCR) | payer MEDICARE ==
[~2017-10-11 11:08] MED LIST changes: +NAPR-1071 PO; -NAPR500T PO
== END 2018-01-09 | disposition home or self-care (01) ==
LOC: ONC 11:08
PROVIDERS: ATTEND Internal Medicine Hematology & Oncology
DX: D68.52 Prothrombin gene mutation (principal); I27.82 Chronic pulmonary embolism; I82.502 Chronic embolism and thrombosis of unspecified deep veins of left lower extremity; I10 Essential (primary) hypertension; K76.0 Fatty (change of) liver, not elsewhere classified; K21.9 Gastro-esophageal reflux disease without esophagitis; Z79.01 Long term (current) use of anticoagulants; Z79.899 Other long term (current) drug therapy
CPT/HCPCS: 99213

== ENCOUNTER → 2017-10-19 | Outpatient (CLI) | payer MEDICARE ==
[~2017-10-19] MED LIST changes: -NAPR-1071 PO; +NAPR500T PO
== END ==
LOC: RAD 12:22
PROVIDERS: ATTEND Internal Medicine Cardiovascular Disease
DX: I82.492 Acute embolism and thrombosis of other specified deep vein of left lower extremity (principal); I73.9 Peripheral vascular disease, unspecified; I10 Essential (primary) hypertension; R06.02 Shortness of breath
CPT/HCPCS: 93923

== ENCOUNTER → 2017-11-01 | Outpatient (CLI) | payer MEDICARE ==
[~2017-11-01] MED LIST changes: +CATHETER FLUSH 10 ML SYR IV PRN; +IOHEXOL 350 MG/ML 150 ML (OMNIPAQUE 350) VIAL IV ONE; +NS 100 ML (IVPB) BAG IV ONE
--- NOTE | 2017-11-01 17:05 | Diagnostic Imaging Report ---
PROCEDURE: CT angiography of the chest with contrast. TECHNIQUE: Multiple contiguous axial images were obtained through the chest after uneventful bolus administration of intravenous contrast. Reconstructed CTA MIP acquisitions were also performed. INDICATION: Shortness of breath. 125 mL of Omnipaque-350 is administered intravenously. COMPARISON: 07/15/2017. FINDINGS: There is minimal remaining pulmonary embolism seen around the branch point of the main left pulmonary artery, significantly improved compared to 07/15/2017 comparison exam. The previously seen embolus in the lower lobe branch of the right pulmonary artery demonstrates very minimal remnant with near complete resolution. The thoracic aorta is normal in caliber. No dissection. No pericardial or pleural effusion. No mediastinal or hilar lymphadenopathy. No axillary lymphadenopathy. The lungs demonstrate septal thickening and minimal groundglass opacities, significantly improved compared to 07/15/2017. The etiology is uncertain. This could relate to a component of venous congestion or fibrotic changes. There is a right lower lobe nodule measuring 4 mm in size stable from 07/15/2017. This is nonspecific. The osseous structures appear grossly unremarkable. IMPRESSION: 1. Significant improvement in pulmonary embolism with remnant minimal emboli near the branch point of the left main pulmonary artery and within the right lower lobe branch to the basilar segments. 2. Nonspecific septal thickening in the lungs may relate to venous congestion or fibrotic changes. 3. A 4 mm right lower lobe pulmonary nodule is seen similar to the previous exam, favored to be a focal scar. Dictated by: Dictated on workstation # [id number]
== END ==
LOC: RAD 09:32
PROVIDERS: ATTEND Nurse Practitioner Family
DX: I26.99 Other pulmonary embolism without acute cor pulmonale (principal); R91.1 Solitary pulmonary nodule; I82.409 Acute embolism and thrombosis of unspecified deep veins of unspecified lower extremity
CPT/HCPCS: 71275

== ENCOUNTER 2017-11-23 09:00 | Outpatient (RCR) | payer MEDICARE ==
[~2017-11-23 09:00] MED LIST changes: -CATHETER FLUSH 10 ML SYR IV PRN; -IOHEXOL 350 MG/ML 150 ML (OMNIPAQUE 350) VIAL IV ONE; +NAPR-1071 PO; -NAPR500T PO; -NS 100 ML (IVPB) BAG IV ONE
== END 2017-11-29 | disposition home or self-care (01) ==
LOC: PULM 09:00
PROVIDERS: ATTEND Nurse Practitioner Family
DX: I82.492 Acute embolism and thrombosis of other specified deep vein of left lower extremity (principal); I26.99 Other pulmonary embolism without acute cor pulmonale; R06.02 Shortness of breath; R09.02 Hypoxemia

== ENCOUNTER 2017-12-02 09:00 | Outpatient (RCR) | payer MEDICARE | END 2018-03-02 | disposition home or self-care (01) | LOC: PULM 09:00 | PROVIDERS: ATTEND Nurse Practitioner Family | DX: I82.492 Acute embolism and thrombosis of other specified deep vein of left lower extremity (principal); I26.99 Other pulmonary embolism without acute cor pulmonale; R06.02 Shortness of breath; R09.02 Hypoxemia ==

== ENCOUNTER → 2018-01-20 | Outpatient (CLI) | payer MEDICARE ==
--- NOTE | 2018-01-20 18:08 | Diagnostic Imaging Report ---
INDICATION: Osteoporosis. COMPARISON: Correlation is made with prior study from 07/04/2015. EXAMINATION: Bone mineral analysis of the lumbar spine and bilateral hips was performed. FINDINGS: The bone mineral density of the lumbar spine from L2-L4 is 1.083 with a T-score of -1.0. This compares with 1.082 and -1.0 on prior. The bone mineral density of the left femoral neck is 0.799 with a T-score of -1.7. This compares with 0.832 and -1.5. The bone mineral density of the right femoral neck is 0.817 with a T-score of -1.6. This compares with 0.820 and -1.6 on prior. IMPRESSION: Osteopenia of the lumbar spine and bilateral femoral necks, similar to prior examination from 07/04/2015. Dictated by: Dictated on workstation # [id number]
== END ==
LOC: RAD 09:35
PROVIDERS: ATTEND Family Medicine
DX: M84.88 Other disorders of continuity of bone, other site (principal)
CPT/HCPCS: 77080

== ENCOUNTER → 2018-02-01 | Outpatient (CLI) | payer MEDICARE ==
--- NOTE | 2018-02-01 15:46 | Diagnostic Imaging Report ---
INDICATION: Fall and rib pain. TIME OF EXAM: 3:25 p.m. COMPARISON: Comparison is made with prior study from 09/20/2017. FINDINGS: The heart size is stable. No definite infiltrate is seen. There is no effusion or pneumothorax. No acute bony abnormality is detected. IMPRESSION: No acute feature detected. Dictated by: Dictated on workstation # [id number]
--- NOTE | 2018-02-01 15:47 | Diagnostic Imaging Report ---
INDICATION: Fall with right-sided rib pain. TIME OF EXAM: 3:27 p.m. FINDINGS: No definite rib fracture is identified. No parenchymal contusion, effusion, or pneumothorax is identified. IMPRESSION: No rib fracture is identified. Dictated by: Dictated on workstation # [id number]
--- NOTE | 2018-02-01 15:54 | Diagnostic Imaging Report ---
INDICATION: Fall and left knee pain. TIME OF EXAMINATION: 3:32 PM. FINDINGS: Three views of the left knee were obtained. The joint spaces are well maintained. The articular surfaces are smooth. No fracture, dislocation, or effusion is identified. The patella is intact. IMPRESSION: No acute bony abnormality is detected. Dictated by: Dictated on workstation # [id number]
== END ==
LOC: RAD 14:38
PROVIDERS: ATTEND Nurse Practitioner Family
DX: R07.81 Pleurodynia (principal); M25.562 Pain in left knee; W19.XXXA Unspecified fall, initial encounter
CPT/HCPCS: 71046; 71100; 73562

== ENCOUNTER → 2018-04-06 | Outpatient (CLI) | payer MEDICARE ==
[~2018-04-06] MED LIST changes: +RT-ALBUTEROL SULF 2.5 MG/3 ML PRE-MIX VIAL INH ONE; +RT-ALBUTEROL SULF 2.5 MG/3 ML PRE-MIX VIAL ONE
== END ==
LOC: RT 08:37
PROVIDERS: ATTEND Nurse Practitioner Family
DX: R06.02 Shortness of breath (principal); R09.02 Hypoxemia; R05 Cough
CPT/HCPCS: 94060; 94726; 94729

== ENCOUNTER → 2018-06-03 | Outpatient (CLI) | payer MEDICARE ==
[~2018-06-03] MED LIST changes: -RT-ALBUTEROL SULF 2.5 MG/3 ML PRE-MIX VIAL INH ONE; -RT-ALBUTEROL SULF 2.5 MG/3 ML PRE-MIX VIAL ONE
--- NOTE | 2018-06-03 17:53 | Diagnostic Imaging Report ---
INDICATION: Routine screening. Comparison is made to prior mammograms from 07/07/2016 and 05/31/2015. 2-D and 3-D bilateral screening mammography was performed with CAD. The current study was also evaluated with a Computer Aided Detection (CAD) system. FINDINGS: Scattered fibroglandular densities are identified. No mass or malignant-appearing microcalcifications are seen. There are benign calcifications present. The axillae are unremarkable. IMPRESSION: No mammographic features suspicious for malignancy are identified. ACR BI-RADS Category 2: Benign findings. Result letter will be mailed to the patient. Note: At least 10% of breast cancer is not imaged by mammography. Dictated by: Dictated on workstation # [id number]
== END ==
LOC: RAD 09:33
PROVIDERS: ATTEND Obstetrics & Gynecology
DX: Z12.31 Encounter for screening mammogram for malignant neoplasm of breast (principal)
CPT/HCPCS: 77067

== ENCOUNTER → 2018-10-10 | Outpatient (CLI) | payer MEDICARE ==
[~2018-10-10] MED LIST changes: -AMLO5TAB2 PO; +AMLO5TAB7 PO
--- NOTE | 2018-10-10 10:57 | Diagnostic Imaging Report ---
INDICATION: Respiratory infection. PA and lateral chest. FINDINGS: Heart size and pulmonary vascularity are normal. Lungs are clear. There are no effusions or pneumothoraces. IMPRESSION: Negative chest. Dictated by: Dictated on workstation # [id number]
== END ==
LOC: RAD 10:25
PROVIDERS: ATTEND Nurse Practitioner Family
DX: J98.8 Other specified respiratory disorders (principal); I82.492 Acute embolism and thrombosis of other specified deep vein of left lower extremity; I26.99 Other pulmonary embolism without acute cor pulmonale
CPT/HCPCS: 71046

== ENCOUNTER → 2018-12-01 | Outpatient (CLI) | payer MEDICARE ==
--- NOTE | 2018-12-01 11:38 | Diagnostic Imaging Report ---
PROCEDURE: CT chest without contrast. TECHNIQUE: Multiple contiguous axial images were obtained through the chest without the use of intravenous contrast. INDICATION: Shortness of breath. FINDINGS: The previous CTA chest exam performed on 11/01/2017 noted only small remnants of the pulmonary embolus identified on 07/15/2017 exam. On this study, the pulmonary arteries cannot be evaluated for emboli due to the absence of intravenous contrast. The heart size is within normal limits and stable when compared to the prior study. There are sparse coronary artery calcifications evident. The aorta is not abnormally dilated and there is no evidence for an acute abnormality of the aorta. There is no obvious mediastinal or hilar adenopathy. The thyroid gland is unremarkable. The large jugular vein on the right seen previously is again evident. The chronic pulmonary changes seen on the prior exam are again evident. The 4 MM nodule in the periphery of the right lung base seen on the prior study is again evident and essentially no different (image 32 of 57). I do suspect that this is a benign process. There is no sign of a pleural effusion. The sections through the upper abdomen fail to show any sign of an acute abnormality. There is no obvious breast mass. The bone windows show no evidence for fracture or for destructive lesion. IMPRESSION: 1. There is chronic pulmonary disease, but there is no evidence for an acute cardiopulmonary abnormality. 2. The pulmonary arteries could not be evaluated for a pulmonary was due to the absence of intravenous contrast. 3. The small nodule in the periphery of the right lower lobe seen previously is again evident and no different. Dictated by: Dictated on workstation # [id number]
== END ==
LOC: RAD 09:48
PROVIDERS: ATTEND Nurse Practitioner Family
DX: J98.4 Other disorders of lung (principal); R91.1 Solitary pulmonary nodule; I26.99 Other pulmonary embolism without acute cor pulmonale; I82.492 Acute embolism and thrombosis of other specified deep vein of left lower extremity
CPT/HCPCS: 71250

== ENCOUNTER → 2018-12-27 | Outpatient (CLI) | payer MEDICARE ==
[~2018-12-27] MED LIST changes: -AMLO5TAB7 PO; +AMLO5TAB9 PO
[2018-12-27 14:09] LABS: ABG BASE EXCESS 2.8 MMOL/L (-2.5-2.5); ABG OXYGEN SATURATION 96 % (94-100); ABG PCO2 39 MMHG (35-45); ABG PH 7.45 (7.37-7.43); ABG PO2 72 MMHG (79-93); ABG TCO2 27.9 MMOL/L (21.0-31.0)
[2018-12-27 14:12] LABS: ALLENS TEST YES-POS; INSPIRED O2 0; PATIENT TEMP 97.9; VENTILATOR NO
== END ==
LOC: RT 13:33
PROVIDERS: ATTEND Nurse Practitioner Family
DX: I26.99 Other pulmonary embolism without acute cor pulmonale (principal); I82.492 Acute embolism and thrombosis of other specified deep vein of left lower extremity; R05 Cough; J98.4 Other disorders of lung; R09.02 Hypoxemia; R06.02 Shortness of breath
CPT/HCPCS: 36600; 82805

== ENCOUNTER → 2018-12-28 | Outpatient (CLI) | payer MEDICARE ==
--- NOTE | 2018-12-28 15:12 | Diagnostic Imaging Report ---
CLINICAL INDICATION: Patient with carotid stenosis. COMPARISON: None. EXAM: Real-time carotid Doppler duplex imaging is performed bilaterally. Peak systolic velocity, ICA/CCA peak systolic ratio, spectral analysis, and vascular morphology are studied. FINDINGS: ARTERY VELOCITY Right Left CCA 0.69 m/s 0.75 m/s ICA 0.82 m/s 0.78 m/s ECA 1.96 m/s 1.87 m/s ICA/CCA 1.18 1.04 VERT.ART Antegrade Antegrade There is mild bilateral carotid artery atherosclerotic disease with the bilateral ECA regions affected the most. There is also elevated velocities within the right and left ECA regions of 1.96 m/s and 1.8 cm/s which correlates to 60-79% stenosis. IMPRESSION: 1: There is atherosclerotic disease and elevated velocities involving the bilateral ECA which suggests 60-79% stenosis. 2: The remainder of the bilateral carotid arteries show mild atherosclerotic disease with no grayscale or Doppler evidence of significant vascular stenosis. Dictated by: Dictated on workstation # [id number]
== END ==
LOC: RAD 12:52
PROVIDERS: ATTEND Family Medicine
DX: I65.23 Occlusion and stenosis of bilateral carotid arteries (principal)
CPT/HCPCS: 93880

== ENCOUNTER 2019-02-22 21:05 | Outpatient (CLI) | payer MEDICARE | END 2019-02-23 06:50 | disposition home or self-care (01) | LOC: SLEEP 21:05 | PROVIDERS: ATTEND Nurse Practitioner Family | DX: G47.10 Hypersomnia, unspecified (principal); R06.02 Shortness of breath; R09.02 Hypoxemia | CPT/HCPCS: 95810 ==

== ENCOUNTER 2019-03-02 15:12 | Outpatient (CLI) | payer MEDICARE | END 2019-03-02 15:46 | disposition home or self-care (01) | LOC: SLEEP 15:12 | PROVIDERS: ATTEND Internal Medicine Critical Care Medicine | DX: G47.33 Obstructive sleep apnea (adult) (pediatric) (principal); R09.02 Hypoxemia; R06.02 Shortness of breath; J98.4 Other disorders of lung; I26.99 Other pulmonary embolism without acute cor pulmonale ==

== ENCOUNTER → 2019-05-29 | Outpatient (CLI) | payer MEDICARE ==
[2019-05-29 10:01] LABS: BUN/CREATININE RATIO 26; CREATININE SERUM 0.88 MG/DL (0.60-1.30); GFR ESTIMATED > 60
--- NOTE | 2019-05-29 13:37 | Diagnostic Imaging Report ---
PROCEDURE: CT chest with contrast only. TECHNIQUE: Multiple contiguous axial images were obtained through the chest after administration of intravenous contrast. Auto Exposure Controls were utilized during the CT exam to meet ALARA standards for radiation dose reduction. INDICATION: Restrictive lung disease, cough, hypoxia, and shortness of breath. COMPARISON: Comparison is made with prior examination from 12/01/2018. FINDINGS: There is some air trapping, compatible with COPD. There is minimal interstitial scarring. There is no pleural or pericardial fluid. There is an unchanged 4 mm nodular density in the right lung base. There is no new dominant mass, spiculated lesion, or suspicious calcification identified. The ascending aorta measures 3.5 cm. There is no evidence of dissection. There is no pathologically enlarged adenopathy in the chest. There is no pneumothorax. There is some fatty infiltration of the liver. There is cholelithiasis. Remainder of the intra-abdominal structures are unremarkable. There are mild degenerative changes in the spine. IMPRESSION: 1. COPD with some unchanged interstitial scarring. There is also an unchanged 4 mm nodular density in the right lung base. 2. Fatty infiltration of the liver. 3. Prominence of the ascending aorta up to 3.5 cm. Dictated by: Dictated on workstation # [id number]
== END ==
LOC: RAD 09:28
PROVIDERS: ATTEND Nurse Practitioner Family
DX: J44.9 Chronic obstructive pulmonary disease, unspecified (principal); K76.0 Fatty (change of) liver, not elsewhere classified; I77.89 Other specified disorders of arteries and arterioles; I26.99 Other pulmonary embolism without acute cor pulmonale; I82.409 Acute embolism and thrombosis of unspecified deep veins of unspecified lower extremity; J98.4 Other disorders of lung
CPT/HCPCS: 36415; 71260; 82565; 84520

== ENCOUNTER → 2019-08-25 | Outpatient (CLI) | payer MEDICARE ==
[~2019-08-25] MED LIST changes: +OMEP20CA13 PO
--- NOTE | 2019-08-25 12:37 | Diagnostic Imaging Report ---
CLINICAL INDICATION: Patient with left calf pain. COMPARISON: None. PROCEDURE: Real-time left lower extremity venous Doppler duplex evaluation is performed from the inguinal region through the popliteal fossa. The calf venous structures are also evaluated. FINDINGS: The deep venous system is well visualized and is easily compressible. There is no evidence of deep venous thrombosis, valvular incompetence, or significant collateral circulation. IMPRESSION: There is no ultrasound Doppler evidence of deep venous thrombosis in the left lower extremity. Dictated by: Dictated on workstation # [id number]
== END ==
LOC: RAD 11:07
PROVIDERS: ATTEND Nurse Practitioner Family
DX: M79.662 Pain in left lower leg (principal)

== ENCOUNTER → 2019-09-04 | Outpatient (CLI) | payer MEDICARE | LOC: EDSTATUS 12-05 14:10 → ONC 09:37 | PROVIDERS: ATTEND Internal Medicine Hematology & Oncology | DX: D68.59 Other primary thrombophilia (principal); Z86.711 Personal history of pulmonary embolism; Z86.718 Personal history of other venous thrombosis and embolism; Z79.01 Long term (current) use of anticoagulants; Z99.81 Dependence on supplemental oxygen; Z88.2 Allergy status to sulfonamides; Z79.899 Other long term (current) drug therapy; J30.9 Allergic rhinitis, unspecified; I73.9 Peripheral vascular disease, unspecified; I10 Essential (primary) hypertension; K21.9 Gastro-esophageal reflux disease without esophagitis; G47.10 Hypersomnia, unspecified; R09.02 Hypoxemia; J98.4 Other disorders of lung; K75.81 Nonalcoholic steatohepatitis (NASH) | CPT/HCPCS: 99213 ==

== ENCOUNTER → 2019-11-24 | Outpatient (CLI) | payer MEDICARE ==
--- NOTE | 2019-11-24 10:55 | Diagnostic Imaging Report ---
INDICATION: Cough. TIME OF EXAM: 10:44 AM Correlation is made with prior chest from 10/10/2018. FINDINGS: The heart size is stable. There are some minimal densities in the lung bases bilaterally. This could represent some areas of infiltrate or atelectasis. Mid and upper lung balderrama are clear. There is no effusion or pneumothorax identified. The pulmonary vascularity is normal. IMPRESSION: Minimal bibasilar infiltrates or atelectasis. Dictated by: Dictated on workstation # [id number]
== END ==
LOC: RAD 10:32
PROVIDERS: ATTEND Nurse Practitioner Family
DX: R05 Cough (principal); R06.00 Dyspnea, unspecified
CPT/HCPCS: 71046

== ENCOUNTER → 2020-01-08 | Outpatient (CLI) | payer MEDICARE ==
[~2020-01-08] MED LIST changes: +CATHETER FLUSH 10 ML SYR IV PRN; +HOLD METFORMIN - RECEIVED CONTRAST 20 ML VIAL IV SCH; +IOHEXOL 350 MG/ML 100 ML (OMNIPAQUE 350) VIAL IV ONE; -KRIL1CAP2 PO; +KRIL1CAP4 PO; +NS 100 ML (IVPB) BAG IV ONE; +OMEP-280 PO; -OMEP20CA13 PO
[2020-01-08 10:36] LABS: BUN/CREATININE RATIO 28; CREATININE SERUM 0.83 MG/DL (0.60-1.30); GFR ESTIMATED > 60
--- NOTE | 2020-01-08 13:11 | Diagnostic Imaging Report ---
EXAMINATION: CT Chest with intravenous contrast. TECHNIQUE: Multiple contiguous axial images were obtained through the chest after the uneventful administration of intravenous contrast. All CT scans use one or more of the following dose optimizing techniques: automated exposure control, MA and/or KvP adjustment based on a patient size and exam type, or iterative reconstruction. HISTORY: Pneumonia. COMPARISON: 05/29/2019. FINDINGS: There is no edema or pneumonia. No pleural effusion. No pneumothorax. Mild peripheral articulations are unchanged from prior exam and suggestive of fibrosis. Heart size is normal. No pericardial effusion. Aorta is normal in caliber. There is no axillary or supraclavicular lymphadenopathy. There is no mediastinal lymphadenopathy. Gallstones are present in the gallbladder. There are no suspicious osseus lesions. IMPRESSION: 1. Mild peripheral fibrosis without edema or pneumonia. Dictated by: Dictated on workstation # [id number]
== END ==
LOC: RAD 10:04
PROVIDERS: ATTEND Nurse Practitioner Family
DX: J18.9 Pneumonia, unspecified organism (principal); J30.9 Allergic rhinitis, unspecified; J84.10 Pulmonary fibrosis, unspecified
CPT/HCPCS: 36415; 71260; 82565; 84520

== ENCOUNTER → 2020-04-01 | Outpatient (CLI) | payer MEDICARE ==
[~2020-04-01] MED LIST changes: -CATHETER FLUSH 10 ML SYR IV PRN; -HOLD METFORMIN - RECEIVED CONTRAST 20 ML VIAL IV SCH; -IOHEXOL 350 MG/ML 100 ML (OMNIPAQUE 350) VIAL IV ONE; -MONT10TA24 PO; +MONT10TA26 PO; -NS 100 ML (IVPB) BAG IV ONE; -OMEP-280 PO; +OMEP20CA18 PO
--- NOTE | 2020-04-01 11:26 | Diagnostic Imaging Report ---
INDICATION: Fall. Left-sided back pain COMPARISON: 10/07/2016 FINDINGS: Frontal and lateral views of the thoracic spine were obtained. Visualization of the upper thoracic spine is limited on the lateral projection. AP static alignment is maintained. There is slight scoliotic deformity of the thoracic spine. Vertebral body heights are preserved as well. There is no fracture or destructive process. There are no large paraspinal masses. Mild degenerative disease is noted in the thoracic spine. Limited views of the lungs are clear. IMPRESSION: 1. No acute fracture or dislocation of the thoracic spine. Dictated by: Dictated on workstation # [id number]
--- NOTE | 2020-04-01 12:08 | Diagnostic Imaging Report ---
INDICATION: Fall, pain FINDINGS: There is grade 1 anterolisthesis of L3 on L4 posterior cortices are off about 5 mm. Remaining levels are aligned normally. There is some mild rightward convexity curvature of the thoracolumbar junction without segmentation anomaly. Some stature loss at the L1 is eccentric to the left with some superior endplate concavity. This is of uncertain acuity. If this correlates with the level of pain consider MRI as nonemergent follow-up to see if there is marrow edema particularly if treatment such as kyphoplasty would be considered. IMPRESSION: Concavity and stature loss eccentric to the left at the L1 level of uncertain acuity correlate with the level of pain. MRI through the affected level may be may provide additional utility to see if this is acute or chronic. Little degenerative listhesis grade 1 L3 on L4. Dictated by: Dictated on workstation # [id number]
== END ==
LOC: RAD 11:01
PROVIDERS: ATTEND Nurse Practitioner Family
DX: M54.9 Dorsalgia, unspecified (principal); X58.XXXA Exposure to other specified factors, initial encounter
CPT/HCPCS: 72072; 72100

== ENCOUNTER → 2020-04-03 | Outpatient (CLI) | payer MEDICARE ==
--- NOTE | 2020-04-03 09:14 | Diagnostic Imaging Report ---
PROCEDURE: MRI lumbar spine. TECHNIQUE: Multiplanar, multisequence MRI of the lumbar spine was performed without contrast. INDICATION: Back pain after fall. FINDINGS: There is straightening of normal lumbar lordosis. There are acute superior endplate compression fractures of T12 and L1. There is minimal loss of height. The remaining lumbar vertebral body heights are well-maintained. There is no spondylolysis or spondylolisthesis. There are no other marrow signal intensity abnormalities. Conus medullaris is seen at L1 is normal in appearance. There is no evidence of spinal or neural foraminal encroachment throughout the lumbar spine. There is some lower lumbar hypertrophic degenerative facet disease. The aorta is nonaneurysmal. Kidneys are normal in appearance. IMPRESSION: Acute superior endplate compression fracture involving the T12 and L1 with minimal loss of height. Lower lumbar hypertrophic degenerative facet disease, however no evidence of spinal or neural foraminal encroachment throughout the lumbar spine. Dictated by: Dictated on workstation # [id number]
== END ==
LOC: RAD 07:41
PROVIDERS: ATTEND Nurse Practitioner Family
DX: S32.010A Wedge compression fracture of first lumbar vertebra, initial encounter for closed fracture (principal); S22.000A Wedge compression fracture of unspecified thoracic vertebra, initial encounter for closed fracture; M47.816 Spondylosis without myelopathy or radiculopathy, lumbar region; W19.XXXA Unspecified fall, initial encounter
CPT/HCPCS: 72148

== ENCOUNTER → 2020-04-17 | Outpatient (CLI) | payer MEDICARE ==
[~2020-04-17] MED LIST changes: +RT-ALBUTEROL SULF 2.5 MG/3 ML PRE-MIX VIAL INH ONE; +RT-ALBUTEROL SULF 2.5 MG/3 ML PRE-MIX VIAL ONE
== END ==
LOC: RT 15:22
PROVIDERS: ATTEND Nurse Practitioner Family
DX: J98.4 Other disorders of lung (principal); R05 Cough
CPT/HCPCS: 94060; 94726; 94729

== ENCOUNTER 2020-05-17 13:08 | Outpatient (RCR) | payer MEDICARE ==
[~2020-05-17 13:08] MED LIST changes: -RT-ALBUTEROL SULF 2.5 MG/3 ML PRE-MIX VIAL INH ONE; -RT-ALBUTEROL SULF 2.5 MG/3 ML PRE-MIX VIAL ONE
== END 2020-06-19 14:03 | disposition home or self-care (01) ==
PROVIDERS: ATTEND Orthopaedic Surgery Orthopaedic Surgery of the Spine
DX: M48.061 Spinal stenosis, lumbar region without neurogenic claudication (principal); M19.90 Unspecified osteoarthritis, unspecified site; I10 Essential (primary) hypertension; I26.99 Other pulmonary embolism without acute cor pulmonale

== ENCOUNTER → 2020-07-17 | Outpatient (CLI) | payer MEDICARE ==
--- NOTE | 2020-07-18 15:50 | Diagnostic Imaging Report ---
EXAMINATION: 2 view chest on 07/17 8:36 AM INDICATION: Cough. Comparison is made with prior chest from 11/24/2019. Heart size is stable. There appear to be some minimal patchy infiltrates in both bases. Mid and upper lung balderrama are clear. No pneumothorax is seen. There is no effusion. There does appear to be a compression fracture deformity of approximately T12 or L1 vertebral body, new since prior chest radiograph. IMPRESSION: 1. Patchy bibasilar pulmonary infiltrates. 2. Superior endplate fracture of T12 or L1, new since October 2019. Dictated by: Dictated on workstation # [id number]
== END ==
LOC: RAD 08:00
PROVIDERS: ATTEND Family Medicine
DX: R05 Cough (principal); R91.8 Other nonspecific abnormal finding of lung field
CPT/HCPCS: 71046

== ENCOUNTER → 2020-09-03 | Outpatient (CLI) | payer MEDICARE ==
[2020-09-03 10:10] LABS: BASOPHILS # (AUTO) 0.1 10^3/uL (0.0-0.1); BASOPHILS % (AUTO) 1 % (0-10); EOSINOPHILS # (AUTO) 0.7 10^3/uL (0.0-0.3); EOSINOPHILS % (AUTO) 10 % (0-10); HEMATOCRIT 39 % (35-52); HEMOGLOBIN 12.6 g/dL (11.5-16.0); LYMPHOCYTES # (AUTO) 1.7 10^3/uL (1.0-4.0); LYMPHOCYTES % (AUTO) 26 % (12-44); MEAN CORPUSCULAR HEMOGLOBIN 29 pg (25-34); MEAN CORPUSCULAR HGB CONC 32 g/dL (32-36); MEAN CORPUSCULAR VOLUME 90 fL (80-99); MEAN PLATELET VOLUME 10.5 fL (9.0-12.2); MONOCYTES % (AUTO) 15 % (0-12); NEUTROPHILS # (AUTO) 3.2 10^3/uL (1.8-7.8); NEUTROPHILS % (AUTO) 48 % (42-75); PLATELET COUNT 308 10^3/uL (130-400); WHITE BLOOD COUNT 6.7 10^3/uL (4.3-11.0)
[2020-09-03 10:35] LABS: ALBUMIN 4.2 GM/DL (3.2-4.5); BILIRUBIN,TOTAL 0.3 MG/DL (0.1-1.0); CALCIUM 9.9 MG/DL (8.5-10.1); CREATININE SERUM 1.2 MG/DL (0.60-1.30); POTASSIUM 4.3 MMOL/L (3.6-5.0); TOTAL PROTEIN 7.3 GM/DL (6.4-8.2)
== END ==
LOC: ONC 10:01
PROVIDERS: ATTEND Internal Medicine Hematology & Oncology
DX: I82.492 Acute embolism and thrombosis of other specified deep vein of left lower extremity (principal); D68.52 Prothrombin gene mutation; Z79.01 Long term (current) use of anticoagulants; Z79.899 Other long term (current) drug therapy
CPT/HCPCS: 80053; 85025; G0463; 99213

== ENCOUNTER → 2020-11-08 | Outpatient (CLI) | payer MEDICARE ==
[~2020-11-08] MED LIST changes: +AMLO-250 PO; -AMLO5TAB9 PO; -MONT10TA26 PO; +MONT10TA97 PO
--- NOTE | 2020-11-08 09:51 | Diagnostic Imaging Report ---
PROCEDURE: CT chest without contrast. TECHNIQUE: Multiple contiguous axial images were obtained through the chest without the use of intravenous contrast. Auto Exposure Controls were utilized during the CT exam to meet ALARA standards for radiation dose reduction. INDICATION: Cough. History of PE. COMPARISON: 01/08/2020. FINDINGS: The heart is normal in size. There is no pericardial effusion. There is no coronary or aortic atherosclerosis. There is no mediastinal or axillary lymphadenopathy. The right jugular vein is dilated but appears stable since the prior exam. There is chronic interstitial prominence and fibrotic change in the lungs, with no masses or focal consolidation seen. No pleural effusion or pneumothorax is seen. No acute osseous abnormality is seen. Imaged portions of the upper abdomen demonstrate no acute abnormality. IMPRESSION: 1. Chronic fibrotic changes in the lungs with no acute pulmonary abnormality seen. Dictated by: Dictated on workstation # [id number]
== END ==
LOC: RAD 08:46
PROVIDERS: ATTEND Family Medicine
DX: J84.10 Pulmonary fibrosis, unspecified (principal); Z86.711 Personal history of pulmonary embolism
CPT/HCPCS: 71250

== ENCOUNTER 2021-03-06 05:28 | Outpatient (CLI) | payer MEDICARE ==
[~2021-03-06] VITALS: Ht 157.5 cm; Wt 65.0 kg
[~2021-03-06 05:28] MED LIST changes: +MONT10TA32 PO; -MONT10TA97 PO
[2021-03-07] MEDS ORDERED: FEXO180T84 PO (09:41)
[2021-03-07] MEDS ORDERED: HYDR-3922 PO (09:41)
[2021-03-07] MEDS ORDERED: ALB0.5V INH (09:41)
[2021-03-07] MEDS ORDERED: DOCU100C37 PO (09:41)
== END 2021-03-06 14:38 ==
LOC: PREOP 05:28
PROVIDERS: ATTEND Internal Medicine
DX: Z01.812 Encounter for preprocedural laboratory examination (principal); R05 Cough; R07.9 Chest pain, unspecified; Z20.822 Contact with and (suspected) exposure to COVID-19
CPT/HCPCS: 87635

== ENCOUNTER → 2021-03-07 | Day surgery (SDC) | payer MEDICARE ==
[~2021-03-07] VITALS: Ht 157 cm; Wt 65.0 kg
[~2021-03-07] MED LIST changes: +ALB0.5V INH; +DOCU100C37 PO; +FEXO180T84 PO; +HURRICAINE EXT TUBE (BENZOCAINE) ONE; +HURRICAINE EXT TUBE (BENZOCAINE) XX PRN; +HYDR-3922 PO; +LACTATED RINGERS 1,000 ML IV ONE; +LACTATED RINGERS 1,000 ML IV STA; +LIDOCAINE JELLY 2% 6 ML SYRINGE MM PRN; +LIDOCAINE JELLY 2% 6 ML SYRINGE ONE; +proPOfol 200 MG/20 ML (DIPRIVAN) VIAL IV ONE
[2021-03-07 09:31] VITALS: BP 176/72
--- NOTE | 2021-03-07 10:14 | Pre-Op Note & Conscious Sedat ---
Pre-Operative Progress Note H&P Reviewed The H&P was reviewed, patient examined and no changes noted. Date H&P Reviewed: Mar 07, 2021 Time H&P Reviewed: 09:50 Conscious Sedation Pre-Proced ASA Score 2 For ASA 3 and 4: Consider anesthesia and medical clearance. Also, for patients with a history of failed moderate sedation consider anesthesia. Airway Lungs Heart ASA score ASA 1: a normal healthy patient ASA 2: a patient with a mild systemic disease (mid diabetes, controlled hypertension, obesity ASA 3: a patient with a severe systemic disease that limits activity (angina, COPD, prior Myocardial infarction) ASA 4: a patient with an incapacitating disease that is a constant threat to life (CHF, renal failure) ASA 5: a moribund patient not expected to survive 24 hrs. (ruptured aneurysm) ASA 6: a declared brain- patient whose organs are being harvested. For emergent operations, add the letter E after the classification Mallampati Classification Grade 2 Sedation Plan Analgesia, Amnesia, Plan communicated to team members, Discussed options with patient/fam, Discussed risks with patient/fam The patient is an appropriate candidate to undergo the planned procedure, sedation, and anesthesia. The patient immediately re-assessed prior to indication. NATALYA BARRAZA MD Mar 07, 2021 10:14
--- NOTE | 2021-03-07 10:34 | Anesthesia-General Post-Op ---
MAC Patient Condition Mental Status/LOC: Same as Preop Cardiovascular: Satisfactory Nausea/Vomiting: Absent Respiratory: Satisfactory Pain: Controlled Complications: Absent Post Op Complications Complications None Follow Up Care/Instructions Patient Instructions None needed. Anesthesiology Discharge Order Discharge Order Patient is doing well, no complaints, stable vital signs, no apparent adverse anesthesia problems. No complications reported per nursing. SCOTTY BURNETTE CRNA Mar 07, 2021 10:34
[2021-03-07 10:35] VITALS: BP 117/58
[2021-03-07 10:40] VITALS: BP 118/58
[2021-03-07 10:45] VITALS: BP 137/62
[2021-03-07 11:10] VITALS: BP 135/66
[2021-03-07 11:25] VITALS: BP 135/66
--- NOTE | 2021-03-07 18:01 | OPERATIVE REPORT ---
DATE OF SERVICE: EGD SUMMARY INDICATION FOR THE PROCEDURE: Cough, chest pain. DESCRIPTION OF PROCEDURE: The patient was placed in the left lateral decubitus position. The endoscope was inserted in the oral cavity and under direct visualization, the esophagus was intubated. The endoscope was passed down the esophagus, stomach and second portion of the duodenum. Careful inspection was made as the endoscope was withdrawn. The patient tolerated the procedure well without coughing. FINDINGS: The proximal, mid and distal esophagus were unremarkable. The Z line was distinct without erythema or erosive esophagitis. No rings, webs or strictures were noted. Small hiatal hernia is present. The cardia, fundus, antrum, pylorus, pyloric channel, duodenal bulb and second portion of duodenum were unremarkable. ASSESSMENT: No evidence for esophagitis was noted today with an unremarkable EGD other than a small hiatal hernia. Considering today's findings, her cough is most likely due to the underlying cause of her known interstitial lung disease. I thank you for the referral of this pleasant lady. Job ID: [id number] DocumentID: [id number] Dictated Date: 03/07/2021 10:41:13 Child Protective Services Specialist Date: 03/07/2021 18:00:52 Dictated By: NATALYA BARRAZA MD [facility]
--- NOTE | 2021-03-18 07:56 | HISTORY AND PHYSICAL ---
DATE OF SERVICE: EGD HISTORY AND PHYSICAL HISTORY OF PRESENT ILLNESS: The patient is a 80-year-old white female referred by Dr. Riley for consideration for EGD evaluation. She reports that she has had a cough for several years, but it has been worse over the past several months that is nonproductive and new over the past couple of months. It has been associated with mid precordial chest pain that radiate through to her back. It tends to come on suddenly and can be quite severe at times and she has had problems with reflux in the past and has had what sounds like a pH study. It has been many years since her last EGD evaluation. She is not aware of any past history for Andrade's esophagus. Denies change in weight, melena or bright red blood per rectum. She has had no night sweats, chills or fever. PAST MEDICAL HISTORY: Significant for pulmonary embolism diagnosed in 2016. She has been on chronic anticoagulant therapy since. She had longstanding hypertension with no known history of coronary artery disease. She has a history of allergic rhinitis with no known history of asthma. SOCIAL HISTORY: The patient is retired. No past smoking history or significant alcohol intake reported. PAST SURGICAL HISTORY: She has had hysterectomy for benign reasons in 1988. FAMILY HISTORY: Mother succumbed to stroke in her 80s and had hypertension. Father of colon cancer, reportedly also had esophageal cancer with type 2 diabetes mellitus. She has one brother in his 70s with type 2 diabetes, a sister with arthritis and heart disease and one son with hypertension. REVIEW OF SYSTEMS: CONSTITUTIONAL: She denies night sweats, chills or fever. Does report some fatigue. PULMONARY: She reports cough. Denies dyspnea on exertion, wheezing. CARDIOVASCULAR: She has noncardiac sounding chest pain without syncope, presyncope or dyspnea on exertion. She denies orthopnea or PND. GASTROINTESTINAL: As noted in the HPI. PHYSICAL EXAMINATION: GENERAL: Reveals a white female who did not appear to be in acute distress but did exhibit somewhat dry nonproductive cough during the interview. HEENT: Unremarkable. CARDIOVASCULAR: Revealed a regular rate and rhythm without murmur, S3 or S4. VITAL SIGNS: Blood pressure 140/80. CHEST: Revealed fine dry sounding rales in the lung balderrama bilaterally without wheezing. Respiratory rate 18 and nonlabored. ABDOMEN: Soft, supple without mass, organomegaly or tenderness. No chest wall pain to palpation was noted. EXTREMITIES: Reveal no cyanosis, clubbing or edema. ASSESSMENT AND PLAN: Persistent cough with noncardiac sounding chest pain. History of reflux. The patient is being set up for EGD evaluation this 03/07/2021. She is to hold her Eliquis 24 hours prior and continue her other medications unchanged. Further recommendations pending EGD evaluation considering abnormal pulmonary exam. I thank you for the referral of this pleasant lady. Job ID: [id number] DocumentID: [id number] Dictated Date: 03/05/2021 15:56:52 Medical Management Trainer Date: 03/05/2021 16:16:09 Dictated By: NATALYA BARRAZA MD [facility]
== END ==
LOC: ENDO 09:05
PROVIDERS: ATTEND Internal Medicine
DX: R05 Cough (principal); R07.9 Chest pain, unspecified; K44.9 Diaphragmatic hernia without obstruction or gangrene; K21.9 Gastro-esophageal reflux disease without esophagitis; I10 Essential (primary) hypertension; E78.5 Hyperlipidemia, unspecified; G47.33 Obstructive sleep apnea (adult) (pediatric); I26.99 Other pulmonary embolism without acute cor pulmonale; J30.9 Allergic rhinitis, unspecified; J44.9 Chronic obstructive pulmonary disease, unspecified; Z88.2 Allergy status to sulfonamides; Z79.899 Other long term (current) drug therapy; Z79.01 Long term (current) use of anticoagulants; Z99.89 Dependence on other enabling machines and devices; Z90.710 Acquired absence of both cervix and uterus; Z80.0 Family history of malignant neoplasm of digestive organs; Z83.3 Family history of diabetes mellitus; Z82.61 Family history of arthritis; Z82.3 Family history of stroke

== ENCOUNTER → 2021-04-21 | Outpatient (CLI) | payer MEDICARE ==
[~2021-04-21] MED LIST changes: -HURRICAINE EXT TUBE (BENZOCAINE) ONE; -HURRICAINE EXT TUBE (BENZOCAINE) XX PRN; -LACTATED RINGERS 1,000 ML IV ONE; -LACTATED RINGERS 1,000 ML IV STA; -LIDOCAINE JELLY 2% 6 ML SYRINGE MM PRN; -LIDOCAINE JELLY 2% 6 ML SYRINGE ONE; -proPOfol 200 MG/20 ML (DIPRIVAN) VIAL IV ONE
== END ==
LOC: CARD 13:30
PROVIDERS: ATTEND Internal Medicine Cardiovascular Disease
DX: I27.21 Secondary pulmonary arterial hypertension (principal); I08.1 Rheumatic disorders of both mitral and tricuspid valves
CPT/HCPCS: 93306

== ENCOUNTER 2021-05-27 16:00 | Day surgery (SDC) | payer MEDICARE ==
[~2021-05-27] VITALS: Ht 160 cm; Wt 66.0 kg
[2021-05-27 14:29] VITALS: BP 171/80
[2021-05-27 14:36] LABS: HEMATOCRIT 40 % (35-52); HEMOGLOBIN 12.8 g/dL (11.5-16.0); MEAN CORPUSCULAR HEMOGLOBIN 29 pg (25-34); MEAN CORPUSCULAR HGB CONC 32 g/dL (32-36); MEAN CORPUSCULAR VOLUME 89 fL (80-99); MEAN PLATELET VOLUME 9.8 fL (9.0-12.2); PLATELET COUNT 355 10^3/uL (130-400); WHITE BLOOD COUNT 6.9 10^3/uL (4.3-11.0)
[2021-05-27 14:51] LABS: INR 1.1 (0.8-1.4); PROTHROMBIN TIME PATIENT 14.6 SEC (12.2-14.7)
[2021-05-27 14:55] LABS: ALANINE AMINOTRANSFERASE 17 U/L (0-55); ALBUMIN 4.3 GM/DL (3.2-4.5); ALKALINE PHOSPHATASE 46 U/L (40-136); BILIRUBIN,TOTAL 0.4 MG/DL (0.1-1.0); BUN/CREATININE RATIO 26; CALCIUM 10.1 MG/DL (8.5-10.1); CARBON DIOXIDE 28 MMOL/L (21-32); CHLORIDE 105 MMOL/L (98-107); CHOLESTEROL 197 MG/DL (< 200); CREATININE SERUM 0.89 MG/DL (0.60-1.30); GFR ESTIMATED > 60; GLUCOSE 103 MG/DL (70-105); HDL CHOLESTEROL 51 MG/DL (40-60); POTASSIUM 3.8 MMOL/L (3.6-5.0); SODIUM 142 MMOL/L (135-145); TRIGLYCERIDES 101 MG/DL (<150); VLDL CHOLESTEROL 20 MG/DL (5-40)
[~2021-05-27 16:00] MED LIST changes: +APIX2.5T PO; +ASPI-1238 PO; +CALC625T76 PO; +CHLO4TAB36 PO; +CHOL200014 PO; +CLC600T PO; +DOXA2TAB2 PO; +HEParin (CATH LAB) 2,000 ML IV ONE; +LIDOCAINE 1% INJ 20 ML 20 ML VIAL ONE; +MELA3TAB39 PO; +MULT-567 PO; +NS IV 1000 ML 1,000 ML IV SCH; +NS IV 1000 ML 1,000 ML ONE
[2021-05-27] MEDS ORDERED: MIDAZOLAM 2 MG/2 ML (VERSED) VIAL ONE (16:09)
[2021-05-27] MEDS ORDERED: fentaNYL INJ 100 MCG/2 ML AMP ONE (16:09)
[2021-05-27 17:29] VITALS: BP 146/66
[2021-05-27 17:45] VITALS: BP 130/60
--- NOTE | 2021-05-27 17:55 | Cardiac Procedure Note-CS/ASA ---
Pre-Procedure Note Pre-Op Procedure Note H&P Reviewed The H&P was reviewed, patient examined and no changes noted. Date H&P Reviewed: May 27, 2021 Time H&P Reviewed: 16:30 Conscious Sedation Pre-Proced Time 16:30 ASA Score 2 For ASA 3 and 4: Consider anesthesia and medical clearance. Also, for patients with a history of failed moderate sedation consider anesthesia. Airway Lungs Heart ASA score ASA 1: a normal healthy patient ASA 2: a patient with a mild systemic disease (mid diabetes, controlled hypertension, obesity ASA 3: a patient with a severe systemic disease that limits activity (angina, COPD, prior Myocardial infarction) ASA 4: a patient with an incapacitating disease that is a constant threat to life (CHF, renal failure) ASA 5: a moribund patient not expected to survive 24 hrs. (ruptured aneurysm) ASA 6: a declared brain- patient whose organs are being harvested. For emergent operations, add the letter E after the classification Mallampati Classification Grade 2 Sedation Plan Analgesia, Amnesia, Plan communicated to team members, Discussed options with patient/fam, Discussed risks with patient/fam The patient is an appropriate candidate to undergo the planned procedure, sedation, and anesthesia. The patient immediately re-assessed prior to indication. TABBY LOO MD FACP FAC [facility]S May 27, 2021 17:55
--- NOTE | 2021-05-27 17:57 | Discharge Inst-Cardiology ---
Discharge Inst-Cardiac Discharge Medications Continued Medications: Albuterol Sulfate (Albuterol Sulfate) 2.5 Mg/0.5 Ml Vial.neb 2.5 MG INH Q6H for SHORTNESS OF BREATH, EACH Amlodipine Besylate (Amlodipine Besylate) 5 Mg Tablet 10 MG PO HS, TAB Apixaban (Eliquis) 2.5 Mg Tablet 2.5 MG PO BID, TAB Aspirin (Aspirin EC) 81 Mg Tablet.dr 81 MG PO Q48H, TAB TAKES AT BEDTIME Calcium Carbonate (Calcium Carbonate) 600 Mg Tablet 600 MG PO MON,WE,FR, TAB Calcium Polycarbophil (Fiber Laxative) 625 Mg Tablet 625 MG PO DAILY, TAB Chlorpheniramine Maleate (Chlorpheniramine Maleate) 4 Mg Tablet 4 MG PO HS, TAB Cholecalciferol (Vitamin D3) (Vitamin D3) 50 Mcg Tablet 50 MCG PO DAILY, TAB Docusate Sodium (Docusate Sodium) 100 Mg Capsule 100 MG PO DAILY, CAP Doxazosin Mesylate (Doxazosin Mesylate) 2 Mg Tablet 2 MG PO HS, TAB Fenofibric Acid (Choline) (Fenofibric Acid) 135 Mg Capsule.dr 135 MG PO DAILY, CAP Fluticasone Propionate (Flonase Allergy Relief) 9.9 Ml Cobb.susp 2 SPRAYS NSEACH DAILY, SPRAY Lactobacillus Rhamnosus GG (Culturelle) 1 Each Capsule 1 CAP PO DAILY, CAP Melatonin (Melatonin) 3 Mg Tablet 3 MG PO HS, TAB Montelukast Sodium (Montelukast Sodium) 10 Mg Tablet 10 MG PO DAILY, TAB Multivitamin (Multivitamins) 1 Each Tablet 1 EACH PO DAILY, TAB Omeprazole (Omeprazole) 20 Mg Capsule.dr 20 MG PO HS, TABBY CONNER MD FACP [facility] CCDS May 27, 2021 17:57
--- NOTE | 2021-05-27 17:58 | Discharge Inst-Post CATH ---
Discharge Inst-CATH/EP Post Cardiac Cath/EP D/C Inst Follow Up/Plan F/u with Dr Zuñiga in 3-4 weeks ACTIVITY * Go Home directly and rest. * Limit activity of the leg (or wrist if it was used) for 7 days including aerobics, swimming, jogging, bicycling, etc. * Restrict stair-climbing for 7 days if possible, if not, climb up with your non-cath leg, then bring together on the same step. * Avoid lifting, pushing, pulling or excessive movement of the affected extremity for 7 days. * Customary sexual activity may be resumed after 2 days-use caution not to use a position that strains or causes pain to the affected extremity. * No driving for 24 hours. * NO SMOKING. * Avoid straining for bowel movements for 7 days. * Gentle walking on level ground is allowed. * Returning to work will depend on the type of procedure and the results. Your doctor will discuss this with you. CALL YOUR DOCTOR FOR ANY OF THE FOLLOWING: *If bleeding from the puncture site occurs- Apply gentle pressure to site with clean cloth and call your doctor or EMS. * If a knot or lump forms under the skin, increases in size, or causes pain. * If bruising appears to be worsening or moving further down your leg instead of disappearing. * Temperature above 101 F. CARE OF YOUR GROIN INCISION; * Bruising or purple discoloration of the skin near the puncture site is common. * You may shower only, no bathtub bathing for 5 days. Be careful to avoid slipping as your leg may feel stiff. * If a closure device was used on your femoral artery, please see the attached guide regarding care of the device and your leg. * Leave dressing on FOR 24 hours. CARE OF YOUR WRIST INCISION; * Bruising or purple discoloration of the skin near the puncture site is common. * You may shower. * DO NOT submerge wrist. * Leave dressing on FOR 24 hours. TABBY ZUÑIGA MD [facility] May 27, 2021 17:58
[2021-05-27 18:00] VITALS: BP 129/61
[2021-05-27 18:15] VITALS: BP 123/57
--- NOTE | 2021-05-27 18:48 | CARDIAC CATHETERIZATION ---
DATE OF SERVICE: 05/27/2021 RIGHT HEART CATHETERIZATION The patient is a 80-year-old lady who has been diagnosed with pulmonary hypertension. Baseline echocardiography. Her occupational health nurse manager, Dr. Ferrell, has recommended right heart catheterization. This was carried out today after having obtained an informed consent. DESCRIPTION OF PROCEDURE: She was brought to the cardiac catheterization laboratory. The right groin was prepared and draped in the usual sterile fashion. Lidocaine 1% was used for local anesthesia. Modified Seldinger technique was used to advance a 7-[place] sheath in the right femoral vein. We used a 7-[place] catheter to carry out right heart catheterization and to measure oxygen saturation in the various right heart chambers. HEMODYNAMICS: Pulmonary artery pressure was 42/15 with a mean of 25 mmHg. Mean pulmonary wedge pressure was 10 mmHg. Right ventricular pressure was 44/6. Right atrial mean pressure was 9 mmHg. Cardiac output by thermodilution was 4.7 liters per minute. Cardiac index was 2.78 liters per minute per squared. Pulmonary vascular resistance was 3.19 Wood units. Oxygen saturation was measured in various right heart chambers and there was no significant oxygen saturation difference between the chambers of the right heart. Following completion of the procedure, the [place]-Arian catheter was removed and manual pressure was used to achieve hemostasis following sheath removal. She tolerated the procedure well. CONCLUSIONS: 1. Mild to moderate pulmonary hypertension with pulmonary artery systolic pressure of 42/15 with a mean of 25, and pulmonary vascular resistance 3.19 Wood units. 2. No evidence of any significant intracardiac shunt on this study. Job ID: [id number] DocumentID: [id number] Dictated Date: 05/27/2021 17:53:37 Roving Weight Gauger Date: 05/27/2021 18:47:51 Dictated By: TABBY LOO MD, MA, FACP, FACC, MTDD
== END 2021-05-27 18:31 | disposition home or self-care (01) ==
LOC: CATH 18:31
PROVIDERS: ATTEND Internal Medicine Cardiovascular Disease
DX: I27.21 Secondary pulmonary arterial hypertension (principal); I34.0 Nonrheumatic mitral (valve) insufficiency; I10 Essential (primary) hypertension; J84.10 Pulmonary fibrosis, unspecified; G47.33 Obstructive sleep apnea (adult) (pediatric); D68.9 Coagulation defect, unspecified; D68.59 Other primary thrombophilia; I48.91 Unspecified atrial fibrillation; E78.5 Hyperlipidemia, unspecified; I65.23 Occlusion and stenosis of bilateral carotid arteries; Z79.899 Other long term (current) drug therapy; Z79.82 Long term (current) use of aspirin; Z79.01 Long term (current) use of anticoagulants; Z99.81 Dependence on supplemental oxygen
CPT/HCPCS: 80053; 80061; 82810; 85027; 85610; 85730; 87081; 93451; C1769; C1894 ×2; 36415

== ENCOUNTER 2021-07-23 09:45 | Outpatient (RCR) | payer MEDICARE ==
[~2021-07-23 09:45] MED LIST changes: -HEParin (CATH LAB) 2,000 ML IV ONE; -LIDOCAINE 1% INJ 20 ML 20 ML VIAL ONE; -NS IV 1000 ML 1,000 ML IV SCH; -NS IV 1000 ML 1,000 ML ONE
== END 2021-07-31 | disposition home or self-care (01) ==
PROVIDERS: ATTEND Family Medicine
DX: M54.9 Dorsalgia, unspecified (principal); I10 Essential (primary) hypertension; K21.9 Gastro-esophageal reflux disease without esophagitis; J84.10 Pulmonary fibrosis, unspecified; Z86.711 Personal history of pulmonary embolism

== ENCOUNTER → 2021-09-15 | Outpatient (CLI) | payer MEDICARE ==
[2021-09-15 10:43] LABS: BASOPHILS # (AUTO) 0.1 10^3/uL (0.0-0.1); BASOPHILS % (AUTO) 1 % (0-10); EOSINOPHILS # (AUTO) 0.3 10^3/uL (0.0-0.3); EOSINOPHILS % (AUTO) 4 % (0-10); HEMATOCRIT 37 % (35-52); HEMOGLOBIN 11.6 g/dL (11.5-16.0); LYMPHOCYTES # (AUTO) 1.6 10^3/uL (1.0-4.0); LYMPHOCYTES % (AUTO) 22 % (12-44); MEAN CORPUSCULAR HEMOGLOBIN 29 pg (25-34); MEAN CORPUSCULAR HGB CONC 31 g/dL (32-36); MEAN CORPUSCULAR VOLUME 94 fL (80-99); MEAN PLATELET VOLUME 10.1 fL (9.0-12.2); MONOCYTES % (AUTO) 13 % (0-12); NEUTROPHILS # (AUTO) 4.4 10^3/uL (1.8-7.8); NEUTROPHILS % (AUTO) 60 % (42-75); PLATELET COUNT 325 10^3/uL (130-400); WHITE BLOOD COUNT 7.4 10^3/uL (4.3-11.0)
[2021-09-15 11:04] LABS: ALBUMIN 3.7 GM/DL (3.2-4.5); BILIRUBIN,TOTAL 0.2 MG/DL (0.1-1.0); CALCIUM 9.4 MG/DL (8.5-10.1); CREATININE SERUM 0.86 MG/DL (0.60-1.30); POTASSIUM 3.8 MMOL/L (3.6-5.0); TOTAL PROTEIN 6.7 GM/DL (6.4-8.2)
== END ==
LOC: LAB 10:25
PROVIDERS: ATTEND Internal Medicine Critical Care Medicine
DX: J84.89 Other specified interstitial pulmonary diseases (principal); M35.9 Systemic involvement of connective tissue, unspecified; K21.9 Gastro-esophageal reflux disease without esophagitis; J30.1 Allergic rhinitis due to pollen; I27.23 Pulmonary hypertension due to lung diseases and hypoxia; G47.33 Obstructive sleep apnea (adult) (pediatric); Z86.711 Personal history of pulmonary embolism; Z79.01 Long term (current) use of anticoagulants
CPT/HCPCS: 36415; 80053; 83880; 85025

== ENCOUNTER 2021-10-08 14:44 | Outpatient (RCR) | payer MEDICARE ==
[~2021-10-08 14:44] MED LIST changes: -LEVO500T80 PO; +LEVO500T81 PO; +MONT-40 PO; -MONT10TA32 PO
== END 2021-11-12 | disposition home or self-care (01) ==
PROVIDERS: ATTEND Family Medicine
DX: M54.9 Dorsalgia, unspecified (principal); I10 Essential (primary) hypertension

== ENCOUNTER 2021-10-12 12:05 | Emergency (ER) | payer MEDICARE ==
[~2021-10-12] VITALS: Ht 157 cm; Wt 66.0 kg
[~2021-10-12 12:05] MED LIST changes: +LEVO500T80 PO; -LEVO500T81 PO; -MONT-40 PO; +MONT10TA32 PO
[2021-10-12] MEDS ORDERED: ACETAMINOPHEN 325 MG TABLET PO STA (12:27)
--- NOTE | 2021-10-12 12:49 | ED Lower Extremity ---
General Chief Complaint: Lower Extremity Stated Complaint: R KNEE PAIN Nursing Triage Note: PT TO ER FROM [facility] WITH C/O R KNEE PAIN THAT BEGAN AT [facility] THIS MORNING. PT HAD TO USE A WC TO GET TO THE CAR AND INTO THE ER BUT AFTER GETTING INTO THE ER WR SHE HAS HAD RELIEF OF THE PAIN History of Present Illness Date Seen by Provider: Oct 12, 2021 Time Seen by Provider: 12:25 Initial Comments 80-year-old female presents for right knee pain that began at [facility] this morning. Patient denies any injuries to her knee, she had no pain last evening in her knee. 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 She required a wheelchair to transport into the emergency department. However upon entering the room she reports that her pain is subsiding. She was able to stand and transfer, and bear weight with no discomfort. No previous history of injuries or surgeries to her right knee. She is on Eliquis and has a history of a DVT in 2016. She denies any calf pain. Onset: this morning Pain/Injury Location: right knee Method of Injury: unknown Allergies and Home Medications Allergies Coded Allergies: Sulfa (Sulfonamide Antibiotics) (Verified Allergy, Mild, 11/12/11) Patient Home Medication List Home Medication List Reviewed: Yes Albuterol Sulfate (Albuterol Sulfate) 2.5 Mg/0.5 Ml Vial.neb, 2.5 MG INH Q6H, (Reported) Entered as Reported by: EVANGELISTA QUINONEZ on 03/07/21 0941 Amlodipine Besylate (Amlodipine Besylate) 5 Mg Tablet, 10 MG PO HS, (Reported) Entered as Reported by: KRISTINA GUZMÁN on 07/16/17 1020 Apixaban (Eliquis) 2.5 Mg Tablet, 2.5 MG PO BID, (Reported) Entered as Reported by: ED LINN on 05/27/21 1522 Aspirin (Aspirin EC) 81 Mg Tablet.dr, 81 MG PO Q48H, (Reported) Entered as Reported by: ED LINN on 05/27/21 1522 Calcium Carbonate (Calcium Carbonate) 600 Mg Tablet, 600 MG PO MON,WE,FR, (Reported) Entered as Reported by: ED LINN on 05/27/21 1522 Calcium Polycarbophil (Fiber Laxative) 625 Mg Tablet, 625 MG PO DAILY, (Reported) Entered as Reported by: ED LINN on 05/27/21 152 Chlorpheniramine Maleate (Chlorpheniramine Maleate) 4 Mg Tablet, 4 MG PO HS, (Reported) Entered as Reported by: ED LINN on 05/27/21 152 Cholecalciferol (Vitamin D3) (Vitamin D3) 50 Mcg Tablet, 50 MCG PO DAILY, (Reported) Entered as Reported by: ED LINN on 05/27/21 152 Docusate Sodium (Docusate Sodium) 100 Mg Capsule, 100 MG PO DAILY, (Reported) Entered as Reported by: EVANGELISTA QUINONEZ on 03/07/21 0941 Doxazosin Mesylate (Doxazosin Mesylate) 2 Mg Tablet, 2 MG PO HS, (Reported) Entered as Reported by: ED LINN on 05/27/21 152 Fenofibric Acid (Choline) (Fenofibric Acid) 135 Mg Capsule.dr, 135 MG PO DAILY, (Reported) Entered as Reported by: KRISTINA GUZMÁN on 07/16/17 1020 Fluticasone Propionate (Flonase Allergy Relief) 9.9 Ml [place].susp, 2 SPRAYS NSEACH DAILY, (Reported) Entered as Reported by: KRISTINA GUZMÁN on 07/16/17 1020 Lactobacillus Rhamnosus GG (Culturelle) 1 Each Capsule, 1 CAP PO DAILY, (Reported) Entered as Reported by: KRISTINA GUZMÁN on 07/16/17 1020 Melatonin (Melatonin) 3 Mg Tablet, 3 MG PO HS, (Reported) Entered as Reported by: ED LINN on 05/27/21 152 Montelukast Sodium (Montelukast Sodium) 10 Mg Tablet, 10 MG PO DAILY, (Reported) Entered as Reported by: KRISTINA GUZMÁN on 07/16/17 1020 Multivitamin (Multivitamins) 1 Each Tablet, 1 EACH PO DAILY, (Reported) Entered as Reported by: ED LINN on 05/27/21 152 Omeprazole (Omeprazole) 20 Mg Capsule.dr, 20 MG PO HS, (Reported) Entered as Reported by: KRISTINA GUZMÁN on 07/16/17 1020 Review of Systems Constitutional: no symptoms reported, see HPI Musculoskeletal: see HPI; No back pain; joint pain (Right knee), joint swelling; No neck pain All Other Systems Reviewed Negative Unless Noted: Yes Past Tiliofs-Ywwynw-Eulvpv Hx Patient Social History Tobacco Use?: No Substance use?: No Alcohol Use?: No Immunizations Up To Date Tetanus Booster (TDap): Unknown Influenza Vaccine Up-to-Date: Yes; Up-to-Date First/Initial COVID19 Vaccinat: NOV 2020 Second COVID19 Vaccination Dejon: DEC 2020 COVID19 Vaccine [employer]: [employer] Seasonal Allergies Seasonal Allergies: Yes Past Medical History Surgeries: Yes Hysterectomy Respiratory: Yes Sleep Apnea, COPD Currently Using CPAP: Yes Cardiac: Yes High Cholesterol, Hypertension Neurological: No Reproductive Disorders: No Female Reproductive Disorders: Denies Sexually Transmitted Disease: No HIV/AIDS: No Genitourinary: No Gastrointestinal: Yes Gastroesophageal Reflux, Diverticulosis Musculoskeletal: Yes (Ankle and Wrist Fx's) Fractures Endocrine: No HEENT: Yes (cataracs removed) Cataract Loss of Vision: Denies Hearing Impairment: Denies Cancer: No Psychosocial: No Integumentary: Yes Eczema Blood Disorders: No Adverse Reaction/Blood Tranf: No Family Medical History Reviewed Nursing Family Hx Sister with DVT Physical Exam Vital Signs Vital Signs - First Documented 10/12/21 12:29 Temp 36.3 Pulse 79 Resp 20 B/P (MAP) 169/69 (102) Pulse Ox 98 O2 Delivery Room Air Capillary Refill : Less Than 3 Seconds Height, Weight, BMI Height: 5'2.00" Weight: 139lbs. 3.0oz. [id number]; 26.00 BMI Method:Stated General Appearance: WD/WN, no apparent distress Cardiovascular: normal peripheral pulses, regular rate, rhythm Respiratory: chest non-tender, lungs clear, normal breath sounds Knees: right knee non-tender, right knee normal range of motion, right knee no evidence of injury, right knee joint effusion (Mild), right knee soft tissue tenderness (Medial and lateral), right knee other (No instability right knee, able to do a straight leg raise.) Neurologic/Psychiatric: no motor/sensory deficits, alert, normal mood/affect, oriented x 3 Skin: normal color, warm/dry, other (Negative Homans on the right) Progress/Results/Core Measures Results/Orders My Orders Orders - NEDRA STEELE Knee, Right, 3 Views (10/12/21 12:27) Acetaminophen Tablet/Caplet (Tylenol T (10/12/21 12:27) Vital Signs/I&O 10/12/21 12:29 Temp 36.3 Pulse 79 Resp 20 B/P (MAP) 169/69 (102) Pulse Ox 98 O2 Delivery Room Air Blood Pressure Mean: 102 Diagnostic Imaging Diagonstic Imaging: Xray Plain Films/CT/US/NM/MRI: knee Comments NAME: LIZETTE GONZALEZ [facility] REC#: [id number] PT STATUS: REG ER : 1940 PHYSICIAN: NEDRA STEELE ADMIT DATE: 10/12/21/ER Signed Date of Exam:10/12/21 KNEE, RIGHT, 3 VIEWS Indication: Knee pain Findings: 3 view right knee showed no fracture, dislocation or acute articular irregularity. No opaque loose body. No erosion or abnormal periosteal reaction. The lateral view suggest likely a small suprapatellar knee joint effusion. Impression: No fracture or acute osseous pathology. No loose body but a small suprapatellar joint effusion is suspected. Dictated by: Dictated on workstation # [id number] Dict: 10/12/21 1252 Trans: 10/12/21 1300 [facility] [id number] Interpreted by: CONCEPCION BACA Electronically signed by: CONCEPCION BACA 10/12/21 1300 Reviewed: Reviewed by Me Departure Impression Primary Impression: Knee pain Qualified Codes: M25.561 - Pain in right knee Disposition: 01 HOME, SELF-CARE Condition: Improved Departure-Patient Inst. Decision time for Depature: 12:55 Referrals: YUE SCHROEDER MD (PCP/Family) Primary Care Physician Patient Instructions: Knee Pain (DC) Add. Discharge Instructions: Continue with your Tylenol every 6-8 hours as needed. Ice to your right knee for 20 minutes every 2 hours as needed. Activity as tolerated, avoid anything that causes pain or discomfort your knee. Follow-up with your primary care provider if symptoms are not improving or worsen. Return to the emergency department for new, urgent healthcare needs. All discharge instructions reviewed with patient and/or family. Voiced understanding. Copy Copies To 1: YUE SCHROEDER MD, AMY ARNP Oct 12, 2021 12:49
--- NOTE | 2021-10-12 12:56 | Diagnostic Imaging Report ---
Indication: Knee pain Findings: 3 view right knee showed no fracture, dislocation or acute articular irregularity. No opaque loose body. No erosion or abnormal periosteal reaction. The lateral view suggest likely a small suprapatellar knee joint effusion. Impression: No fracture or acute osseous pathology. No loose body but a small suprapatellar joint effusion is suspected. Dictated by: Dictated on workstation # [id number]
[2021-10-12 13:34] VITALS: BP 137/62
== END 2021-10-12 13:34 | disposition home or self-care (01) ==
LOC: EDUNIT# 12:05 → ER 12:06
DX: M25.561 Pain in right knee (principal); G47.30 Sleep apnea, unspecified; J44.9 Chronic obstructive pulmonary disease, unspecified; I10 Essential (primary) hypertension; E78.00 Pure hypercholesterolemia, unspecified; K21.9 Gastro-esophageal reflux disease without esophagitis; Z79.01 Long term (current) use of anticoagulants; Z79.82 Long term (current) use of aspirin; Z79.899 Other long term (current) drug therapy
CPT/HCPCS: 73562

== ENCOUNTER 2022-06-26 11:40 | Outpatient (RCR) | payer MEDICARE, OTHER ==
[~2022-06-26 11:40] MED LIST changes: -CHOL200014 PO; +CHOL200052 PO; -LEVO500T80 PO; +LEVO500T81 PO; +MONT-40 PO; -MONT10TA32 PO
== END 2022-06-28 ==
PROVIDERS: ATTEND Nurse Practitioner Family
DX: N81.10 Cystocele, unspecified (principal); N81.6 Rectocele; N39.3 Stress incontinence (female) (male)

== ENCOUNTER → 2022-07-07 | Outpatient (CLI) | payer MEDICARE, OTHER ==
--- NOTE | 2022-07-07 12:36 | Diagnostic Imaging Report ---
INDICATION: Routine screening. Comparison is made with prior mammogram from 06/03/2018, 07/07/2016. 2-D and 3-D bilateral screening mammography was performed with CAD. CAD is utilized. The current study was also evaluated with a Computer Aided Detection (CAD) system. Scattered fibroglandular densities are identified bilaterally. The parenchymal pattern is stable. No mass or malignant-appearing microcalcifications are seen. Axillae are unremarkable. IMPRESSION: BI-RADS Category 1 No mammographic features suspicious for malignancy are identified. ACR BI-RADS Category 1: Negative. Result letter will be mailed to the patient. Note: At least 10% of breast cancer is not imaged by mammography. Dictated by: Dictated on workstation # [id number]
--- NOTE | 2022-07-07 14:11 | Diagnostic Imaging Report ---
INDICATION: Postmenopausal state COMPARISON: 01/20/2018 FINDINGS: AP Spine L1-L4: [BMD (g/cm2): 1.030] [T-Score: -1.4] [Z-Score: 0.4] [BMD Previous: 1.083] [BMD % Change: -4.9]* LT Hip Neck: [BMD (g/cm2): 0.757] [T-Score: -2.0] [Z-Score: 0.1] LT Hip Total: [BMD (g/cm2):0.810] [T-Score:-1.6] [Z-Score: 0.4] [BMD Previous: 0.819] [BMD % Change: -1.1] RT Hip Neck: [BMD (g/cm2):0.771] [T-Score:-1.9] [Z-Score:0.2] RT Hip Total: [BMD (g/cm2):0.854] [T-score:-1.2] [Z-Score:0.7] [BMD Previous:0.846] [BMD % Change:0.9] *Indicates significant change from prior examination based on 95% confidence level. World Health Organization criteria for BMD interpretation classify patients as Normal (T-score at or above -1.0), Osteopenic (T-score between -1.0 and -2.5) or Osteoporotic (T-score at or below -2.5). LIMITATIONS AND MODIFICATION: None. FRACTURE RISK (FRAX SCORE): The ten year probability of (%): Major Osteoporotic Fracture: [22.7] Hip Fracture: [6.1] IMPRESSION: 1. Osteopenia (Low bone mass). 2. Bone mineral density within the lumbar spine has significantly decreased since the prior examination. Bone mineral density within the bilateral hips has not significantly changed. 3. See below National Osteoporosis Foundation guidelines on when to potentially initiate pharmacologic therapy. Based on the National Osteoporosis Foundation Guidelines, pharmacologic treatment should be initiated in any of the following, unless clinical conditions suggest otherwise: * Any patient with prior fragility fracture of the hip or vertebrae. A spine fracture indicates 5X risk for subsequent spine fracture and 2X risk for subsequent hip fracture. * Osteoporosis (T-score <-2.5). * Postmenopausal women and men age 50 and older with low bone mass/osteopenia (T-score between -1.0 and -2.5) by DXA and 10-year major osteoporotic fracture greater than 20% or a 10-year probability of hip fracture greater than 3%. These fracture risks are supplied above in the FRAX score, if applicable. * Clinician judgement and/or patient preferences may indicate treatment for people with 10-year fracture probabilities above or below these levels. Dictated by: Dictated on workstation # [id number]
== END ==
LOC: RAD 10:15
PROVIDERS: ATTEND Nurse Practitioner Family
DX: Z12.31 Encounter for screening mammogram for malignant neoplasm of breast (principal); M85.80 Other specified disorders of bone density and structure, unspecified site; Z78.0 Asymptomatic menopausal state
CPT/HCPCS: 77063; 77067; 77080

== ENCOUNTER 2022-07-23 13:33 | Outpatient (RCR) | payer OTHER ==
[~2022-07-23 13:33] MED LIST changes: +LEVO-55 PO; -LEVO500T81 PO
== END 2022-07-29 | disposition home or self-care (01) ==
PROVIDERS: ATTEND Nurse Practitioner Family
DX: N81.10 Cystocele, unspecified (principal); N81.6 Rectocele; N39.3 Stress incontinence (female) (male)

== ENCOUNTER 2022-08-07 15:12 | Outpatient (RCR) | payer OTHER | END 2022-08-28 | disposition home or self-care (01) | PROVIDERS: ATTEND Nurse Practitioner Family | DX: N81.10 Cystocele, unspecified (principal); N81.6 Rectocele; N39.3 Stress incontinence (female) (male) ==

== ENCOUNTER → 2023-06-02 | Outpatient (CLI) | payer MEDICARE ==
--- NOTE | 2023-06-02 14:24 | Diagnostic Imaging Report ---
INDICATION: Cough. Shortness of air. COMPARISON: 07/17/2020. FINDINGS: Frontal and lateral radiographic views of the chest were obtained and show interval progression of diffuse coarse interstitial opacities. There is no large effusion or pneumothorax. The cardiac silhouette is within normal limits. The osseous structures show no gross acute abnormalities. IMPRESSION: Interval progression of diffuse coarse interstitial pneumonia. Findings may be on the basis of progression of chronic interstitial lung disease. Superimposed acute interstitial pneumonia or edema is also a consideration. Dictated by: Dictated on workstation # [id number]
== END ==
LOC: RAD 13:35
PROVIDERS: ATTEND Physician Assistant
DX: J18.8 Other pneumonia, unspecified organism (principal); J20.9 Acute bronchitis, unspecified
CPT/HCPCS: 71046

== ENCOUNTER → 2023-06-16 | Outpatient (CLI) | payer MEDICARE | LOC: CARD 10:26 | PROVIDERS: ATTEND Internal Medicine Cardiovascular Disease | DX: I08.0 Rheumatic disorders of both mitral and aortic valves (principal); I27.21 Secondary pulmonary arterial hypertension | CPT/HCPCS: 93306 ==